=== PATIENT | female | born 1945 | race Two or more races ===

== ENCOUNTER → 2017-01-27 | Outpatient (CLI) | payer OTHER, MEDICAID ==
[~2017-01-27] VITALS: Ht 147.3 cm; Wt 61.7 kg
== END | disposition home or self-care (01) ==
LOC: Rad HDHVI 12:54
PROVIDERS: ATTEND Internal Medicine Cardiovascular Disease
DX: I08.2 Rheumatic disorders of both aortic and tricuspid valves (principal); E78.00 Pure hypercholesterolemia, unspecified
CPT/HCPCS: 93017; 93306

== ENCOUNTER → 2017-02-23 | Outpatient (CLI) | payer OTHER, MEDICAID | END | disposition home or self-care (01) | LOC: Rad HDHVI 14:12 | PROVIDERS: ATTEND Internal Medicine Cardiovascular Disease | DX: R79.82 Elevated C-reactive protein (CRP) (principal); I25.10 Atherosclerotic heart disease of native coronary artery without angina pectoris; I10 Essential (primary) hypertension | CPT/HCPCS: 36415; 86141; 93880 ==

== ENCOUNTER 2020-06-10 17:06 | Inpatient (IN) | payer OTHER, MEDICAID ==
[~2020-06-10] VITALS: Ht 149.9 cm; Wt 63.9 kg
[2020-06-10 19:06] LABS: Basophils # (auto) 0 10 ^3/uL (0-0.2); Basophils % (auto) 0.2 % (0.0-2.0); Eosinophils # (auto) 0 10 ^3/uL (0-0.8); Eosinophils % (auto) 0.1 % (0.0-7.0); Hematocrit 37.7 % (36.0-46.0); Hemoglobin 12.7 g/dL (12.2-16.2); Lymphocytes # (auto) 0.7 10 ^3/uL (0.4-5.4); Lymphocytes % (auto) 6.1 % (10.0-50.0); Mean Corpuscular Hemoglobin 29.2 pg (28.0-32.0); Mean Corpuscular Hgb Conc. 33.7 g/dL (32.0-36.0); Mean Corpuscular Volume 86.5 fL (80.0-100.0); Monocytes # (auto) 0.8 10 ^3/uL (0-1.3); Monocytes % (auto) 6.3 % (0.0-12.0); Neutrophils # (auto) 10.6 10 ^3/uL (1.6-8.6); Neutrophils % (auto) 87.3 % (37.0-80.0); Platelet Count (auto) 332 10^3/uL (140-450); Red Blood Cells 4.36 10^6/uL (4.0-5.20); White Blood Cell 12.2 10^3/uL (4.4-10.8)
[2020-06-10 19:25] LABS: Albumin 3.6 g/dL (3.4-5.0); BUN/Creatinine Ratio 13.5; Calcium 8.7 mg/dL (8.5-10.1); Potassium 3.5 mmol/L (3.5-5.1)
[2020-06-10 19:28] LABS: Bilirubin, Total 0.4 mg/dL (0.2-1.0); Total Protein 8.4 g/dL (6.4-8.2)
[2020-06-10 19:38] LABS: Magnesium 2.3 mg/dL (1.6-2.6)
[2020-06-10 19:46] LABS: Lactate Dehydrogenase 477 U/L (84-246)
[2020-06-10 19:54] LABS: CRP High Sensitivity > 19.0 mg/dL (< 0.3)
[2020-06-10] MEDS ORDERED: MORPHINE SULF INJ 2 MG/ML SYRINGE 1ML IV PRN (22:45)
[2020-06-10] MEDS ORDERED: NITROGLYCERIN 0.4 MG SL TAB SL PRN (22:45)
[2020-06-10] MEDS ORDERED: ONDANSETRON HCL 4 MG/2 ML VIAL IV PRN (22:45)
[2020-06-11 07:57] LABS: Basophils # (auto) 0 10 ^3/uL (0-0.2); Basophils % (auto) 0.2 % (0.0-2.0); Eosinophils # (auto) 0 10 ^3/uL (0-0.8); Eosinophils % (auto) 0.2 % (0.0-7.0); Hematocrit 34.1 % (36.0-46.0); Hemoglobin 11.4 g/dL (12.2-16.2); Lymphocytes # (auto) 1.5 10 ^3/uL (0.4-5.4); Lymphocytes % (auto) 18.7 % (10.0-50.0); Mean Corpuscular Hgb Conc. 33.6 g/dL (32.0-36.0); Mean Corpuscular Volume 86.4 fL (80.0-100.0); Monocytes # (auto) 0.8 10 ^3/uL (0-1.3); Monocytes % (auto) 10.2 % (0.0-12.0); Neutrophils # (auto) 5.8 10 ^3/uL (1.6-8.6); Neutrophils % (auto) 70.7 % (37.0-80.0); Platelet Count (auto) 303 10^3/uL (140-450); Red Blood Cells 3.94 10^6/uL (4.0-5.20); White Blood Cell 8.1 10^3/uL (4.4-10.8)
[2020-06-11 08:16] LABS: Potassium 3.4 mmol/L (3.5-5.1)
[2020-06-11 08:22] LABS: Bilirubin, Total 0.4 mg/dL (0.2-1.0); Calcium 8.9 mg/dL (8.5-10.1); Total Protein 7.1 g/dL (6.4-8.2)
[2020-06-11] MEDS: DexAMETHasone SOD PHOS 10MG/1ML VIAL INJ IV SCH (09:49)
[2020-06-11] MEDS: ASCORBIC ACID 1,000 MG TAB PO SCH (09:49)
[2020-06-11] MEDS: CHOLECALCIFEROL (VITD3) 2,000 UNIT CAP PO SCH (09:49)
[2020-06-11] MEDS: FAMOTIDINE 20 MG TAB PO SCH (09:49)
[2020-06-11] MEDS: ZINC SULFATE 220mg CAP or TAB PO SCH (09:49)
[2020-06-11] MEDS: DOXYCYCLINE 100MG/250ML 250 ML IV SCH ×2 (09:50→22:39)
[2020-06-11] MEDS ORDERED: DexAMETHasone SOD PHOS 10MG/1ML VIAL INJ IV SCH (10:00)
[2020-06-11] MEDS: BUDESONIDE (INHALATION) 180 MCG IH IN SCH ×2 (10:14→22:00)
[2020-06-11] MEDS: ENOXAPARIN SOD 40 MG/0.4 ML SYRINGE SC SCH (10:20)
[2020-06-11] MEDS ORDERED: REMDESIVIR PER PHARMACY 0 ML IV SCH (11:30)
[2020-06-11] MEDS ORDERED: diphenhdrAMINE HCL 50 MG/1 ML VL IV PRN (11:30)
[2020-06-11] MEDS ORDERED: REMDESIVIR 200 MG in NS 210ml LOADING DOSE ADULT IV ONE (15:00)
[2020-06-11 15:50] VITALS: BP 153/68
--- NOTE | 2020-06-11 15:50 | NUR ---
Telemetry admit from ER DANIELLAJULIO CTIM admitted to Telemetry unit after SBAR received. Patient oriented to Kasia Rodrigues, primary RN, unit, room, bed, and unit policies regarding patient care and visiting hours. Patient now on continuous telemetry monitoring, tele box # 14 and telemetry reading on arrival to unit is sinus rhyhtm. Patient placed on bedside oxygen at 6L n/c saturation 91%. Pt weighed by bedscale and encouraged to call if they need something. All questions and concerns addressed, patient verbalized understanding. Fall precs in place per protocol call light within reach no acute distress or sob noted.
[2020-06-11] MEDS ORDERED: guaiFENesin-DM 100/10mg/5ml SYR PO PRN (16:00)
--- NOTE | 2020-06-11 16:46 | NUR ---
Remdesivir started as ordered after consent verified BP 122/76 HR 96 Cont to monitor closely
--- NOTE | 2020-06-11 17:00 | NUR ---
Patient tolerating Remdesivir well BP 121/78 HR 86 Cont to monitor closely
--- NOTE | 2020-06-11 18:00 | NUR ---
Patient tolerated Remdesivir well BP 117/74 HR 82 IV flushed with saline as ordered. No acute distress or sob noted. Call light within reach
[2020-06-11] MEDS ORDERED: OME20T PO (18:38)
[2020-06-11] MEDS ORDERED: ATOR10TA PO (18:38)
--- NOTE | 2020-06-11 19:00 | NUR ---
Patient care endorsed endorsed care to Flory tellez. Patient sitting up in bed no acute distress or sob noted currently 6l n/c. Call light within reach.
--- NOTE | 2020-06-11 19:20 | NUR ---
Opening Shift Note Assumed care of patient. Patient is awake and alert, oriented x 4. No S/S of respiratory distress. Patient denies pain at this time. Bed placed in lowest locked position, bed alarm turned on, and call light within reach. POC discussed; patient to call for assistance PRN. Will continue to monitor for changes Q1hr and PRN.
[2020-06-11 20:00] VITALS: BP 125/77
[2020-06-11 22:00] VITALS: BP 125/77
[2020-06-11] MEDS: ALBUTEROL SULF HFA 90MCG INH 200DOSE IN PRN (22:00)
[2020-06-11] MEDS: ATORVASTATIN 20 MG TAB PO SCH (22:40)
[2020-06-11 22:53] LABS: Urine Amorphous Crystal FEW /hpf (None Seen); Urine Bacteria NONE SEEN /hpf (None Seen); Urine Blood Negative /uL (Negative); Urine Mucus FEW (None Seen); Urine WBC <1 /hpf (0 - 5)
[2020-06-12] VITALS (10 sets, daily range): BP systolic 110–160; BP diastolic 64–84
--- NOTE | 2020-06-12 01:15 | NUR ---
CC infused No s/s symptoms of adverse reaction present. BP 128/80 , HR 83, T 98.1. Will continue to monitor.
[2020-06-12] MEDS: ACETAMINOPHEN 325 MG TAB PO PRN (01:29)
--- NOTE | 2020-06-12 02:59 | NUR ---
CC Infusion of convalescence plasma started at 0015. Patient tolerates well. VS within normal limits. Nos/s of allergic or adverse reaction. Patient instructed to report any changes in physical condition. Will continue to monitor.
[2020-06-12] MEDS: BUDESONIDE (INHALATION) 180 MCG IH IN SCH ×2 (10:00→18:41)
[2020-06-12] MEDS: CHOLECALCIFEROL (VITD3) 2,000 UNIT CAP PO SCH (10:00)
[2020-06-12] MEDS: DOXYCYCLINE 100MG/250ML 250 ML IV SCH ×2 (10:00→21:34)
[2020-06-12] MEDS: ENOXAPARIN SOD 40 MG/0.4 ML SYRINGE SC SCH (10:00)
[2020-06-12] MEDS: FAMOTIDINE 20 MG TAB PO SCH (10:00)
[2020-06-12] MEDS ORDERED: ENOXAPARIN SOD 60 MG/0.6 ML SYRINGE SC ONE (11:00)
[2020-06-12] MEDS: DexAMETHasone SOD PHOS 10MG/1ML VIAL INJ IV SCH (11:08)
[2020-06-12] MEDS: ZINC SULFATE 220mg CAP or TAB PO SCH (11:09)
[2020-06-12] MEDS: ASCORBIC ACID 1,000 MG TAB PO SCH (11:09)
[2020-06-12] MEDS ORDERED: REMDESIVIR PER PHARMACY 0 ML IV SCH (11:30)
[2020-06-12] MEDS ORDERED: FUROSEMIDE 40 MG/4 ML VIAL IV ONE (14:30)
[2020-06-12] MEDS ORDERED: POTASSIUM CHL 20 Meq TABLET PO ONE (14:30)
[2020-06-12] MEDS: REMDESIVIR 100 MG in SODIUM CHL 0.9% 250 ML IV SCH (15:16)
--- NOTE | 2020-06-12 15:16 | NUR ---
Remdesivir started as ordered at this time. BP 126/72 HR 75 continue to monitor closely
--- NOTE | 2020-06-12 17:02 | NUR ---
Patient tolerated Remdesivir well no distress or sob noted BP 120/76 HR 70 Cont to monitor
--- NOTE | 2020-06-12 17:11 | NUR ---
Patient on 8L Oxymizer, ambulated to bathroom and became sob with exertion. Pt assisted back to bed and placed on 8L oxymizer saturation 92%. Cont to monitor
[2020-06-12] MEDS: ALBUTEROL SULF HFA 90MCG INH 200DOSE IN PRN (18:41)
[2020-06-12] MEDS: ATORVASTATIN 20 MG TAB PO SCH (21:36)
--- NOTE | 2020-06-12 23:35 | NUR ---
Respiratory culture: Sputum sample sent to lab for respiratory culture as ordered.
--- NOTE | 2020-06-13 01:45 | NUR ---
Influenza Swab: Influenza Swab A and B collected and sent to lab for testing. Patient tolerated well.
[2020-06-13 05:00] VITALS: BP 123/65
[2020-06-13] MEDS: ACETAMINOPHEN 325 MG TAB PO PRN (05:31)
[2020-06-13] MEDS: BUDESONIDE (INHALATION) 180 MCG IH IN SCH ×3 (06:11→20:01)
--- NOTE | 2020-06-13 07:15 | NUR ---
Opening Shift Note Assumed care of patient, awake and alert. No S/S of distress/SOB or pain. Patient on 6L Oxymizer. Instructed on POC and to call for assist PRN, will continue to monitor for changes Q1hr and PRN.
[2020-06-13 08:26] LABS: Calcium 9.2 mg/dL (8.5-10.1); Potassium 3.7 mmol/L (3.5-5.1)
[2020-06-13 08:27] LABS: BUN/Creatinine Ratio 23.8
[2020-06-13] MEDS: ALBUTEROL SULF HFA 90MCG INH 200DOSE IN PRN ×2 (08:48→20:00)
[2020-06-13 09:00] VITALS: BP 111/59
[2020-06-13] MEDS: DexAMETHasone SOD PHOS 10MG/1ML VIAL INJ IV SCH (09:21)
[2020-06-13] MEDS: ASCORBIC ACID 1,000 MG TAB PO SCH (09:22)
[2020-06-13] MEDS: FUROSEMIDE 40 MG/4 ML VIAL IV SCH (09:22)
[2020-06-13] MEDS: DOXYCYCLINE 100MG/250ML 250 ML IV SCH ×2 (09:22→21:18)
[2020-06-13] MEDS: FAMOTIDINE 20 MG TAB PO SCH (09:22)
[2020-06-13] MEDS: ZINC SULFATE 220mg CAP or TAB PO SCH (09:22)
[2020-06-13] MEDS: POTASSIUM CHL 20 Meq TABLET PO SCH (09:22)
[2020-06-13] MEDS: CHOLECALCIFEROL (VITD3) 2,000 UNIT CAP PO SCH (09:23)
[2020-06-13] MEDS: ENOXAPARIN SOD 40 MG/0.4 ML SYRINGE SC SCH (09:23)
--- NOTE | 2020-06-13 11:08 | NUR ---
Assessment Patient is a 74 year old female, patient was unable to participate with SW on initial assessment, SW called . Per Kavon ([phone]), patient was alert and oriented prior to admission to [facility]. Per Kavon, patient cognitive abilities are intact. Per Kavon, patient can do all ADL's and ambulate independently. Per Kavon, patient lives at home with him, she is retire and receives social security as income. Per Kavon, patient will return home post discharge, and will provide transportation post discharge. Per Kavon, he and their son are her support system. Per Kavon, he is requesting Advance Directive forms. Discharge planning: Patient will return home post discharge, patient will follow up care with PCP post discharge. SW will provide Advance Directive forms prior to post discharge. There are no other discharge needs to address at the moment. Addendum: 06/13/20 at 1115 by SHAWNA MATA SS Amended: Links added.
[2020-06-13 13:00] VITALS: BP 115/63
[2020-06-13] MEDS: REMDESIVIR 100 MG in SODIUM CHL 0.9% 250 ML IV SCH (15:32)
--- NOTE | 2020-06-13 15:32 | NUR ---
Remdesivir started as ordered at this time. BP 96/63 HR 77 rate started at 125ml/hr as pt's BP is decreased. Cont to monitor closely. Patient denies dizziness, light headed. Instructed to notify primary nursing of hypotension symptoms she verbalized understanding.
--- NOTE | 2020-06-13 15:45 | NUR ---
Patient tolerating Remdesivir well BP 102/62 HR 67. Remdesivir rate 125ml/hr cont to monitor
--- NOTE | 2020-06-13 16:20 | NUR ---
BP 99/67 HR 63 Remdesivir at 125ml/hr no acute distress or sob noted. Cont to monitor closely
[2020-06-13 17:00] VITALS: BP 101/66
--- NOTE | 2020-06-13 17:50 | NUR ---
Patient tolerated Remdesivir infusion well no signs of acute distress or sob BP 106/78 HR 75 o2 93% on 6L oxymizer. Patient encouraged to prone and IS at bedside she verbalized understanding and returned demonstration. Cont care
--- NOTE | 2020-06-13 19:00 | NUR ---
Patient care endorsed endorsed care to Shiela tellez. Patient sitting up in bed no acute distress or sob noted oxygen at 93% on 6L oxymizer. Call light within reach
--- NOTE | 2020-06-13 19:30 | NUR ---
Opening Shift Note Assumed care of patient, awake and alert. No S/S of distress/SOB or pain noted. Instructed on POC and to call for assist PRN. Bed is in lowest locked position with bed rails up x2 and call light is within reach of the patient.
[2020-06-13 20:53] VITALS: BP 117/72
[2020-06-13] MEDS: ATORVASTATIN 20 MG TAB PO SCH (21:18)
[2020-06-14] MEDS: ACETAMINOPHEN 325 MG TAB PO PRN (05:45)
[2020-06-14 06:01] VITALS: BP 106/69
[2020-06-14 07:06] LABS: Basophils # (auto) 0 10 ^3/uL (0-0.2); Basophils % (auto) 0.1 % (0.0-2.0); Eosinophils # (auto) 0 10 ^3/uL (0-0.8); Eosinophils % (auto) 0.1 % (0.0-7.0); Hemoglobin 12.6 g/dL (12.2-16.2); Monocytes # (auto) 1.7 10 ^3/uL (0-1.3); Neutrophils # (auto) 9.5 10 ^3/uL (1.6-8.6); Nucleated Red Blood Cells % 0.1 %
[2020-06-14 07:14] LABS: Hematocrit 36.7 % (36.0-46.0); Lymphocytes # (auto) 3.4 10 ^3/uL (0.4-5.4); Lymphocytes % (auto) 23.2 % (10.0-50.0); Mean Corpuscular Hemoglobin 29.6 pg (28.0-32.0); Mean Corpuscular Hgb Conc. 34.2 g/dL (32.0-36.0); Mean Corpuscular Volume 86.4 fL (80.0-100.0); Monocytes % (auto) 11.4 % (0.0-12.0); Neutrophils % (auto) 65.2 % (37.0-80.0); Platelet Count (auto) 484 10^3/uL (140-450); Red Blood Cells 4.25 10^6/uL (4.0-5.20); Red Cell Distribution Width 12.8 % (11.8-14.3); White Blood Cell 14.5 10^3/uL (4.4-10.8)
[2020-06-14 07:33] LABS: Calcium 8.9 mg/dL (8.5-10.1); Potassium 3.5 mmol/L (3.5-5.1)
[2020-06-14 07:35] LABS: Bilirubin, Total 0.4 mg/dL (0.2-1.0); Total Protein 7.5 g/dL (6.4-8.2)
[2020-06-14] MEDS: BUDESONIDE (INHALATION) 180 MCG IH IN SCH (10:00)
[2020-06-14 10:06] VITALS: BP 99/53
[2020-06-14] MEDS: DexAMETHasone SOD PHOS 10MG/1ML VIAL INJ IV SCH (10:07)
[2020-06-14] MEDS: DOXYCYCLINE 100MG/250ML 250 ML IV SCH (10:07)
[2020-06-14] MEDS: FUROSEMIDE 40 MG/4 ML VIAL IV SCH (10:07)
[2020-06-14] MEDS: ZINC SULFATE 220mg CAP or TAB PO SCH (10:08)
[2020-06-14] MEDS: CHOLECALCIFEROL (VITD3) 2,000 UNIT CAP PO SCH (10:08)
[2020-06-14] MEDS: POTASSIUM CHL 20 Meq TABLET PO SCH (10:08)
[2020-06-14] MEDS: ASCORBIC ACID 1,000 MG TAB PO SCH (10:08)
[2020-06-14] MEDS: FAMOTIDINE 20 MG TAB PO SCH (10:08)
[2020-06-14] MEDS: ENOXAPARIN SOD 40 MG/0.4 ML SYRINGE SC SCH (10:08)
--- NOTE | 2020-06-14 12:51 | NUR ---
Nutrition Assessment Notes please see attached link for complete assessment [employer] needs BW 62 [id number] kcals (23-25 kcal/kgBW), Est Protein needs: 62-68 gms/day (1.0-1.1 gm/kgBW) Will continue to monitor and reassess prn. Addendum: 06/14/20 at [address] Amended: Links added.
[2020-06-14] MEDS ORDERED: ALBUAER3 IN (14:27)
[2020-06-14] MEDS ORDERED: ZINC220T6 PO (14:27)
[2020-06-14] MEDS ORDERED: CHOL1CAP47 PO (14:27)
[2020-06-14] MEDS ORDERED: ASCO500T11 PO (14:27)
[2020-06-14] MEDS ORDERED: ASPI81CH43 PO (14:27)
[2020-06-14] MEDS ORDERED: DEX4T PO (14:27)
--- NOTE | 2020-06-14 16:08 | NUR ---
Reassessment Per [facility] from [facility] ([phone]), possible delivery for 02 4L tonight. NIKO informed Lisa that patient has possible discharge orders for 06/15/2020. Per Lisa, oxygen concentrator will be delivered to home address. NIKO has notify Tiffani GONSALEZ of oxygen delivery.
[2020-06-14] MEDS: REMDESIVIR 100 MG in SODIUM CHL 0.9% 250 ML IV SCH (16:22)
--- NOTE | 2020-06-14 18:59 | NUR ---
CARE ENDORSED TO NOC RN.
--- NOTE | 2020-06-14 19:24 | NUR ---
Opening Shift Note Assumed care of patient, awake and alert x 4. No S/S of distress/SOB or pain. Patient on 4l/min Oxymizer. Bed is in lowest position and locked. Call light within reach. Board updated. Instructed on POC and to call for assist PRN, will continue to monitor for changes Q1hr and PRN.
[2020-06-14] MEDS: ATORVASTATIN 20 MG TAB PO SCH (21:36)
[2020-06-14 22:16] VITALS: BP 104/66
--- NOTE | 2020-06-14 22:23 | NUR ---
Home O2 delivered to bedside.
[2020-06-15 05:17] VITALS: BP 109/65
[2020-06-15] MEDS: BUDESONIDE (INHALATION) 180 MCG IH IN SCH (07:29)
[2020-06-15] MEDS: ALBUTEROL SULF HFA 90MCG INH 200DOSE IN PRN (07:30)
--- NOTE | 2020-06-15 07:35 | NUR ---
Opening Shift Note Assumed care of patient, AOx4. No S/S of distress/SOB. Patient complains of headache, will administer PRN Tylenol. Safety measures in place, including bed locked in lowest position and call light within reach. Instructed on POC and to call for assist PRN, will continue to monitor for changes Q1hr and PRN.
[2020-06-15 07:52] LABS: Basophils # (auto) 0 10 ^3/uL (0-0.2); Eosinophils # (auto) 0 10 ^3/uL (0-0.8); Eosinophils % (auto) 0.3 % (0.0-7.0)
[2020-06-15 07:54] LABS: Hematocrit 38.6 % (36.0-46.0); Hemoglobin 13.1 g/dL (12.2-16.2); Lymphocytes # (auto) 3.7 10 ^3/uL (0.4-5.4); Lymphocytes % (auto) 26.2 % (10.0-50.0); Mean Corpuscular Hemoglobin 29.5 pg (28.0-32.0); Mean Corpuscular Hgb Conc. 33.8 g/dL (32.0-36.0); Mean Corpuscular Volume 87.1 fL (80.0-100.0); Monocytes # (auto) 1.5 10 ^3/uL (0-1.3); Monocytes % (auto) 10.4 % (0.0-12.0); Neutrophils # (auto) 8.9 10 ^3/uL (1.6-8.6); Neutrophils % (auto) 63.1 % (37.0-80.0); Nucleated Red Blood Cells % 0.1 %; Platelet Count (auto) 508 10^3/uL (140-450); Red Blood Cells 4.43 10^6/uL (4.0-5.20); Red Cell Distribution Width 13.1 % (11.8-14.3)
[2020-06-15 08:15] LABS: Albumin 2.9 g/dL (3.4-5.0); Potassium 3.8 mmol/L (3.5-5.1)
[2020-06-15 08:18] LABS: BUN/Creatinine Ratio 28.8; Bilirubin, Total 0.4 mg/dL (0.2-1.0); Total Protein 7.2 g/dL (6.4-8.2)
[2020-06-15 09:00] VITALS: BP 108/68
--- NOTE | 2020-06-15 09:15 | NUR ---
IV Insertion IV access obtained, via clean sterile technique by inserting 22 gauge catheter to left forearm after one attempt. IV secured properly. No trauma to site. Patient tolerated well, continue to monitor.
[2020-06-15] MEDS: DexAMETHasone SOD PHOS 10MG/1ML VIAL INJ IV SCH (09:30)
[2020-06-15] MEDS: ZINC SULFATE 220mg CAP or TAB PO SCH (09:31)
[2020-06-15] MEDS: POTASSIUM CHL 20 Meq TABLET PO SCH (09:31)
[2020-06-15] MEDS: FUROSEMIDE 40 MG/4 ML VIAL IV SCH (09:31)
[2020-06-15] MEDS: FAMOTIDINE 20 MG TAB PO SCH (09:32)
[2020-06-15] MEDS: CHOLECALCIFEROL (VITD3) 2,000 UNIT CAP PO SCH (09:32)
[2020-06-15] MEDS: ASCORBIC ACID 1,000 MG TAB PO SCH (09:32)
[2020-06-15] MEDS: ENOXAPARIN SOD 40 MG/0.4 ML SYRINGE SC SCH (09:32)
[2020-06-15] MEDS: ACETAMINOPHEN 325 MG TAB PO PRN (09:33)
[2020-06-15] MEDS ORDERED: levoFLOXacin 500 MG TAB PO SCH (10:00)
--- NOTE | 2020-06-15 11:15 | NUR ---
Doctor at bedside Dr. Bauman at bedside, updated on POC to patient and this RN. No new orders given at the moment, will continue to monitor.
[2020-06-15 12:00] VITALS: BP 107/67
[2020-06-15 13:00] VITALS: BP 99/64
[2020-06-15 13:56] VITALS: BP 108/68
--- NOTE | 2020-06-15 16:20 | NUR ---
Remdesivir started as ordered at this time. BP 107/67 HR 79 rate started at 125ml/hr as pt's BP is decreased. Cont to monitor closely. Patient denies dizziness, light headed. Instructed to notify primary nursing of hypotension symptoms she verbalized understanding.
[2020-06-15] MEDS: REMDESIVIR 100 MG in SODIUM CHL 0.9% 250 ML IV SCH (16:52)
--- NOTE | 2020-06-15 18:33 | NUR ---
Patient tolerated Remdesivir infusion well no signs of acute distress/SOB. BP 103/65 HR 76. Will continue to monitor.
--- NOTE | 2020-06-15 19:08 | NUR ---
Closing Note Endorsed care to Denilson RN. Discharge instructions provided, awaiting brain picker. This RN called patients , Kavon, updated on POC. States he will be here to pick patient up. No signs of distress noted at this time.
--- NOTE | 2020-06-15 19:34 | NUR ---
Discharge instructions given as ordered. Encourage to follow up with PMD as instructed. All questions and concerns addressed. Patient verbalized understanding. IV removed with catheter intact, pressure dressing applied. Telemetry unit returned to ICU. Patient taken to vehicle via wheelchair with all personal belongings, accompanied by staff and family member. No distress noted at time of departure.
== END 2020-06-15 19:34 | disposition home or self-care (01) | DRG 871 ==
LOC: ER 17:07 → TELE 17:08 → TELE-EAST 06-11 16:15 → EAST 06-14 14:20
PROVIDERS: ADMIT Nurse Practitioner; ATTEND Internal Medicine
PROC: XW033E5 Introduction of Remdesivir Anti-infective into Peripheral Vein, Percutaneous Approach, New Technology Group 5 (ICD-10-PCS; 2020-06-11)
PROC: XW13325 Transfusion of Convalescent Plasma (Nonautologous) into Peripheral Vein, Percutaneous Approach, New Technology Group 5 (ICD-10-PCS; principal; 2020-06-12)
DX: A41.89 Other specified sepsis (principal); U07.1 COVID-19; J12.89 Other viral pneumonia; N17.0 Acute kidney failure with tubular necrosis; J96.01 Acute respiratory failure with hypoxia; E87.1 Hypo-osmolality and hyponatremia; R65.20 Severe sepsis without septic shock; J45.909 Unspecified asthma, uncomplicated; E87.6 Hypokalemia; E78.5 Hyperlipidemia, unspecified; K21.9 Gastro-esophageal reflux disease without esophagitis; Z90.49 Acquired absence of other specified parts of digestive tract; Z88.5 Allergy status to narcotic agent
CPT/HCPCS: 36415; 36600; 71045; 80048; 80053; 81001; 82728; 82805; 83605; 83615; 83735; 84443; 84484; 85025; 85379; 86141; 86850; 86900; 86901; 87070; 87077; 87186; 87205; 87426; 87804; 94640; 96372; 96374; G0378; J1100; J3490

== ENCOUNTER → 2022-01-15 | Outpatient (CLI) | payer OTHER, MEDICAID ==
[~2022-01-15] MED LIST: ALBUAER3 IN; ASCO500T11 PO; ASPI81CH43 PO; ATOR10TA PO; CHOL1CAP47 PO; DEX4T PO; OME20T PO; ZINC220T6 PO
== END | disposition home or self-care (01) ==
LOC: Rad HDHVI 09:00
PROVIDERS: ATTEND Internal Medicine
DX: I08.2 Rheumatic disorders of both aortic and tricuspid valves (principal); I10 Essential (primary) hypertension; E78.5 Hyperlipidemia, unspecified
CPT/HCPCS: 93306

== ENCOUNTER → 2022-02-12 | Outpatient (CLI) | payer OTHER, MEDICAID ==
[~2022-02-12] VITALS: Ht 149.9 cm; Wt 60.8 kg
[~2022-02-12] MED LIST changes: +ADENOSINE 51 MG in GIVE UN-DILUTED 0 ML IV ONE; +ADENOSINE 90 MG/30 ML INJ IV ONE
== END | disposition home or self-care (01) ==
LOC: Rad HDHVI 13:33
PROVIDERS: ATTEND Internal Medicine
DX: E78.5 Hyperlipidemia, unspecified (principal); E11.9 Type 2 diabetes mellitus without complications; R07.9 Chest pain, unspecified; I10 Essential (primary) hypertension; I82.409 Acute embolism and thrombosis of unspecified deep veins of unspecified lower extremity
CPT/HCPCS: 78452; 93005; 96374; 96375; A9500; J0153

== ENCOUNTER 2022-08-11 16:56 | Emergency (ER) | payer OTHER, MEDICAID ==
[~2022-08-11] VITALS: Ht 160 cm; Wt 63.6 kg
[~2022-08-11 16:56] MED LIST changes: -ADENOSINE 51 MG in GIVE UN-DILUTED 0 ML IV ONE; -ADENOSINE 90 MG/30 ML INJ IV ONE
[2022-08-12 00:50] VITALS: BP 139/76
[2022-08-12] MEDS ORDERED: PERCOT PO (02:02)
[2022-08-12] MEDS ORDERED: ONDA-144 PO (02:02)
== END 2022-08-12 02:21 | disposition home or self-care (01) ==
LOC: EDBD 16:56 → ER 16:56
DX: G44.309 Post-traumatic headache, unspecified, not intractable (principal); J45.909 Unspecified asthma, uncomplicated; K21.9 Gastro-esophageal reflux disease without esophagitis; E78.5 Hyperlipidemia, unspecified; Z88.5 Allergy status to narcotic agent; Z79.899 Other long term (current) drug therapy; Z90.49 Acquired absence of other specified parts of digestive tract; V49.49XA Driver injured in collision with other motor vehicles in traffic accident, initial encounter; Y93.89 Activity, other specified; Y92.89 Other specified places as the place of occurrence of the external cause; Y99.8 Other external cause status
CPT/HCPCS: 70450; 72125

== ENCOUNTER → 2022-09-07 | Outpatient (CLI) | payer OTHER ==
[~2022-09-07] MED LIST changes: +ONDA-144 PO; +PERCOT PO
== END | disposition home or self-care (01) ==
LOC: Rad HDHVI 08:08
PROVIDERS: ATTEND Internal Medicine
DX: I08.3 Combined rheumatic disorders of mitral, aortic and tricuspid valves (principal); I10 Essential (primary) hypertension; E78.5 Hyperlipidemia, unspecified
CPT/HCPCS: 93306

== ENCOUNTER 2023-08-26 19:10 | Emergency (ER) | payer OTHER, MEDICAID ==
[~2023-08-26] VITALS: Ht 149.9 cm; Wt 59.1 kg
[2023-08-26 21:38] LABS: Urine Bacteria FEW /hpf (None Seen); Urine Blood Negative /uL (Negative); Urine Clarity HAZY (Clear); Urine Color Colorless (Yellow); Urine Protein, UAD Negative (Negative); Urine Specific Gravity 1.003 (1.001-1.035); Urine Urobilinogen Normal (Negative); Urine WBC 4 /hpf (0 - 5)
[2023-08-26 21:42] LABS: Basophils # (auto) 0 10 ^3/uL (0-0.2); Basophils % (auto) 0.4 % (0.0-2.0); Eosinophils # (auto) 0.4 10 ^3/uL (0-0.8); Eosinophils % (auto) 3.3 % (0.0-7.0); Hematocrit 39.6 % (36.0-46.0); Hemoglobin 13.2 g/dL (12.2-16.2); Lymphocytes # (auto) 4.4 10 ^3/uL (0.4-5.4); Lymphocytes % (auto) 39.9 % (10.0-50.0); Mean Corpuscular Hemoglobin 29.8 pg (28.0-32.0); Mean Corpuscular Hgb Conc. 33.2 g/dL (32.0-36.0); Mean Corpuscular Volume 89.8 fL (80.0-100.0); Monocytes # (auto) 0.6 10 ^3/uL (0-1.3); Monocytes % (auto) 5.1 % (0.0-12.0); Neutrophils # (auto) 5.6 10 ^3/uL (1.6-8.6); Neutrophils % (auto) 51.3 % (37.0-80.0); Red Blood Cells 4.41 10^6/uL (4.0-5.20); Red Cell Distribution Width 13.1 % (11.8-14.3)
[2023-08-26 21:52] LABS: Chloride 111 mmol/L (98-107); Sodium 143 mmol/L (136-145)
[2023-08-26 21:53] LABS: Anion Gap 7 (5-15); Calcium 9.6 mg/dL (8.7-10.4); Carbon Dioxide 25 mmol/L (20-30)
[2023-08-26 21:58] LABS: BUN/Creatinine Ratio 12.2 (10.0-20.0); Blood Urea Nitrogen 9 mg/dL (9-23); Glucose 103 mg/dL (74-106)
[2023-08-27 02:20] VITALS: PULSE 79; RESP 20; O2SAT 98
[2023-08-27 02:22] VITALS: BP 164/80; PULSE 72; RESP 20; TEMP 98.4; O2SAT 75
== END 2023-08-27 02:29 | disposition home or self-care (01) ==
LOC: ER 19:10
DX: R10.31 Right lower quadrant pain (principal); J45.909 Unspecified asthma, uncomplicated; K21.9 Gastro-esophageal reflux disease without esophagitis; E78.5 Hyperlipidemia, unspecified; Z90.49 Acquired absence of other specified parts of digestive tract; Z79.82 Long term (current) use of aspirin; Z79.899 Other long term (current) drug therapy; Z88.5 Allergy status to narcotic agent; Z88.8 Allergy status to other drugs, medicaments and biological substances
CPT/HCPCS: 36415; 74176; 80048; 81001; 85025

== ENCOUNTER → 2023-11-17 | Outpatient (CLI) | payer OTHER ==
[~2023-11-17] VITALS: Ht 149.9 cm; Wt 58.1 kg
[~2023-11-17] MED LIST changes: +ADENOSINE 49 MG in GIVE UN-DILUTED 0 ML IV ONE; +ADENOSINE 90 MG/30 ML INJ IV ONE
== END | disposition home or self-care (01) ==
LOC: Rad HDHVI 09:31
PROVIDERS: ATTEND Internal Medicine Cardiovascular Disease
DX: I48.0 Paroxysmal atrial fibrillation (principal); I11.0 Hypertensive heart disease with heart failure; I50.33 Acute on chronic diastolic (congestive) heart failure; E78.5 Hyperlipidemia, unspecified; R07.89 Other chest pain
CPT/HCPCS: 78452; 93005; 96374; 96375; A9500; J0153

== ENCOUNTER → 2023-12-28 | Outpatient (CLI) | payer OTHER ==
[~2023-12-28] MED LIST changes: -ADENOSINE 49 MG in GIVE UN-DILUTED 0 ML IV ONE; -ADENOSINE 90 MG/30 ML INJ IV ONE
== END | disposition home or self-care (01) ==
LOC: Rad HDHVI 15:00
PROVIDERS: ATTEND Internal Medicine Cardiovascular Disease
DX: I08.3 Combined rheumatic disorders of mitral, aortic and tricuspid valves (principal); I11.9 Hypertensive heart disease without heart failure
CPT/HCPCS: 93306

== ENCOUNTER 2025-01-15 12:25 | Inpatient (IN) | payer OTHER, MEDICAID ==
[~2025-01-15] VITALS: Ht 149.9 cm; Wt 65.2 kg
--- NOTE | 2025-01-15 13:24 | ED.PDOC ---
History of Present Illness HPI Comments 79-year-old female presents to the ER with a prior medical history of high lipids, diabetes, DVT in the right leg, IVC placed 3 years ago: Surgical history of a peripheral stent right leg, varicose vein bilateral surgery, cholecystectomy, colon surgery and the chief complaint of shortness of breath. From the patient reports that she had a IVC filter on Wednesday01/12/2025 at [facility], and was informed if she has any shortness of breath to go to the ER. Patient had dizziness on Wednesday. Patient has left upper back pain during inspiration Denies chills, fever, N/V/D, CP. No other associated symptoms, modifiers, recent injuries or sick contacts present at this time. Chief Complaint: Shortness of Breath Time Seen by MD: 12:40 Primary Care Provider: SHAHRAM Reviewed Notes: Nurses Notes, Medications, Allergies Allergies: Coded Allergies: Codeine (Verified Allergy, Unknown, 01/27/17) Ibuprofen (Verified Allergy, Unknown, 08/26/23) Home Meds Active Scripts Ondansetron (Zofran) 4 Mg Tab, 4 MG PO BID for 7 Days, #14 MG Prov:FRANCISCO BAIG MD 08/12/22 Oxycodone W/ Acetaminophen (Percocet 5/325MG) 1 Tab Tb, 1 TAB PO BID for 7 Days, #14 TAB Prov:FRANCISCO BAIG MD 08/12/22 Aspirin (Asa) 81 Mg Ch, 81 MG PO DAILY for 60 Days, #60 TAB Prov:PRIYANKA PANTOJA MD 06/14/20 Dexamethasone (Decadron) 4 Mg Tb, 6 MG PO DAILY for 5 Days, #8 TAB Decadron 6 mg (1.5 tab of 4 mg) PO daily for 5 days (Please dispense 8 tab) Prov:PRIYANKA PANTOJA MD 06/14/20 Cholecalciferol (Vitamin D3 Super Strength) 2,000 Unit Cap, 4000 UNIT PO DAILY for 30 Days, #60 CAP Prov:PRIYANKA PANTOJA MD 06/14/20 Zinc Sulfate (Zinc Sulfate) 220 Mg Tab, 220 MG PO DAILY for 30 Days, #30 TAB Prov:PRIYANKA PANTOJA MD 06/14/20 Ascorbic Acid (VITAMIN C TABLET) 500 Mg Tb, 1 TAB PO BID, #60 TAB Prov:PRIYANKA PATNOJA MD 06/14/20 Albuterol Sulfate (VENTOLIN MDI) 90 Mcg Ih, 180 MCG IN TIDPRN PRN, #1 INH Prov:PRIYANKA PANTOJA MD 06/14/20 Reported Medications Omeprazole (Omeprazole) 20 Mg Cap, 20 MG PO DAILY, CAP 06/11/20 Atorvastatin Calcium (Lipitor) 10 Mg Tab, 1 TAB PO QPM, #90 TAB 1 Refill 06/11/20 Information Source: Patient Mode of Arrival: Ambulatory Severity: Moderate Timing: Days Duration: Since onset, Days Prehospital treatment: None Past Medical History PAST MEDICAL HISTORY: DM, High Lipids Past Medical History (Other): DVT on the right lower extremity, IVC placed 3 years ago Surgical History: Denies all surgeries Surgical History (Other): Peripheral stent on right lower extremity MANAGER CONTRACTING History: No Pertinent MANAGER CONTRACTING History Family History Family History: Reviewed,noncontributory to illness, Unknown Social History Smoker: Non-Smoker Alcohol: Denies ETOH Use Drugs: Denies Drug Use Lives In: Home Constitutional: denies: chills, diaphoresis, fatigue, fever, malaise, sweats, weakness, others EENTM: denies: blurred vision, double vision, ear bleeding, ear discharge, ear drainage, ear pain, ear ringing, eye pain, eye redness, hearing loss, mouth pain, mouth swelling, nasal discharge, nose bleeding, nose congestion, nose pain, photophobia, tearing, throat pain, throat swelling, voice changes, others Respiratory: reports: shortness of breath; denies: cough, hemoptysis, orthopnea, SOB at rest, SOB with excertion, stridor, wheezing, others Cardiovascular: denies: chest pain, dizzy spells, diaphoresis, Dyspnea on exertion, edema, irregular heart beat, left arm pain, lightheadedness, palpitations, PND, syncope, others Gastrointestinal: denies: abdomen distended, abdominal pain, blood streaked bowels, constipated, diarrhea, dysphagia, difficulty swallowing, hematemesis, melena, nausea, poor appetite, poor fluid intake, rectal bleeding, rectal pain, vomiting, others Genitourinary: denies: abnormal vagina bleeding, burning, dyspareunia, dysuria, flank pain, frequency, hematuria, incontinence, pain, , vagina discharge, urgency, others Neurological: denies: dizziness, fainting, headache, left sided numbness, left sided weakness, numbness, paresthesia, pre-existing deficit, right sided numbness, right sided weakness, seizure, speech problems, tingling, tremors, weakness, others Musculoskeletal: reports: back pain; denies: gout, joint pain, joint swelling, muscle pain, muscle stiffness, neck pain, others Integumetry: denies: bruises, change in color, change in hair/nails, dryness, laceration, lesions, lumps, rash, wounds, others Allergic/Immunocompromised: denies: Difficulty Healing, Frequent Infections, Hives, Itching, others Hematologic/Lymphatic: denies: anemia, blood clots, easy bleeding, easy bruising, swollen glands, others Endocrine: denies: excessive hunger, excessive sweating, excessive thirst, excessive urination, flushing, intolerance to cold, intolerance to heat, unexplained weight gain, unexplained weight loss, others Psychiatric: denies: anxiety, bipolar disorder, depression, hopeless, panic disorder, schizophrenia, sleepless, suicidal, others All Other Systems: Reviewed and Negative Physical Exam General Appearance: No Apparent Distress, Normal HEENT: Normal ENT Inspection, Pharynx Normal, TMs Normal Neck: Full Range of Motion, Non-Tender, Normal, Normal Inspection Respiratory: Chest Non-Tender, Lungs Clear, No Accessory Muscle Use, No Respiratory Distress, Normal Breath Sounds Cardiovascular: No Edema, No JVD, No Murmur, No Gallop, Normal Peripheral Pulses, Regular Rate/Rhythm Breast Exam: Deferred Gastrointestinal: No Organomegaly, Non Tender, No Pulsatile Mass, Normal Bowel Sounds, Soft Genitalia: Deferred Pelvic: Deferred Rectal: Deferred Extremities: No calf tenderness, Normal capillary refill, Normal inspection, Normal range of motion, Non-tender, No pedal edema Musculoskeletal : Apperance: Normal Neurologic: Alert, mobile equipment mechanic II-XII nml as Tested, No Motor Deficits, Normal Affect, Normal Mood, No Sensory Deficits Cerebellar Function: Normal Reflexes: Normal Skin: Dry, Normal Color, Warm Lymphatic: No Adenopathy Was a procedure done? Was a procedure done?: No EKG EKG : Pulse Rate (adult): 94 [place]: Normal Cardiac Rhythm: NSR Block: None Hypertrophy: None ST: Normal Differential Dx Considerations may include: PE, anxiety, chf, ptx, pneumonia, ACS, anemia X-Ray, Labs, Meds, VS Vital Signs Date Time Temp Pulse Resp B/P (MAP) Pulse Ox O2 Delivery O2 Flow Rate FiO2 01/15/25 13:24 94 01/15/25 12:44 97.6 72 16 141/72 (95) 98 97.6 01/15/25 12:38 94 Lab Test 01/15/25 14:48 01/15/25 13:24 Range/Units Troponin I High Sensitivity 9 9 </=34 ng/L White Blood Count 13.4 H 4.4-10.8 10^3/uL Red Blood Count 3.65 L 4.0-5.20 10^6/uL Hemoglobin 10.7 L 12.2-16.2 g/dL Hematocrit 31.8 L 36.0-46.0 % Mean Corpuscular Volume 87.1 80.0-100.0 fL Mean Corpuscular Hemoglobin 29.2 28.0-32.0 pg Mean Corpuscular Hemoglobin Concent 33.5 32.0-36.0 g/dL Red Cell Distribution Width 14.8 H 11.8-14.3 % Platelet Count 159 140-450 10^3/uL Mean Platelet Volume 9.0 6.9-10.8 fL Neutrophils (%) (Auto) 72.7 37.0-80.0 % Lymphocytes (%) (Auto) 17.3 10.0-50.0 % Monocytes (%) (Auto) 8.1 0.0-12.0 % Eosinophils (%) (Auto) 1.6 0.0-7.0 % Basophils (%) (Auto) 0.3 0.0-2.0 % Neutrophils # (Auto) 9.7 H 1.6-8.6 10 ^3/uL Lymphocytes # (Auto) 2.3 0.4-5.4 10 ^3/uL Monocytes # (Auto) 1.1 0-1.3 10 ^3/uL Eosinophils # (Auto) 0.2 0-0.8 10 ^3/uL Basophils # (Auto) 0 0-0.2 10 ^3/uL Nucleated Red Blood Cells 0.0 % Sodium Level 142 136-145 mmol/L Potassium Level 3.4 L 3.5-5.1 mmol/L Chloride Level 106 98-107 mmol/L Carbon Dioxide Level 29 20-31 mmol/L Anion Gap 7 5-15 Blood Urea Nitrogen 10 9-23 mg/dL Creatinine 0.92 0.550-1.02 mg/dL Glomerular Filtration Rate Calc 64 >90 mL/min BUN/Creatinine Ratio 10.9 10.0-20.0 Serum Glucose 112 H 74-106 mg/dL Calcium Level 10.2 8.7-10.4 mg/dL Time of 1ST Reevaluation: 13:10 Reevaluation 1ST: Unchanged Patient Education/Counseling: Diagnosis, Treatment, Prognosis, Need For Follow Up Family Education/Counseling: No Family Present Comments given pt's history of PE, with her dyspnea, and the CT finding, she may have a small PE. i will start her on lovenox. and she will be admitted for further evaluation SEPSIS Sepsis Screen Date sepsis recognized/suspect: Jan 15, 2025 Time Sepsis recognized/suspect: 1224 Recent Procedure: No On Antibiotic Therapy: No Respiratory Rate >20: No Heart Rate >90: No Temp<36 C (96.8 F) or >38.3 C: No SBP <90 or MAP <65 mmHG: No New Acute Mental Status Change: No Is the patient on CPAP, BIPAP,: No Physician Orders Continuous Ekg Monitoring 08,12,16,20,00,04 (01/15/25 12:37) Electrocardigram (01/15/25 12:37) Ct Angio Chest Contrast (01/15/25 12:37) Troponin-I Hs (01/15/25 15:37) Electrocardigram (01/15/25 13:37) Electrocardigram (01/15/25 15:37) Vital Signs Date Time Temp Pulse Resp B/P (MAP) Pulse Ox O2 Delivery O2 Flow Rate FiO2 01/15/25 13:24 94 01/15/25 12:44 97.6 72 16 141/72 (95) 98 97.6 01/15/25 12:38 94 Laboratory Tests Test 01/15/25 13:24 White Blood Count 13.4 10^3/uL (4.4-10.8) H Departure 1 Departure Time of Disposition: 16:18 Impression: Primary Impression: Dyspnea Qualified Codes: R06.02 - Shortness of breath Additional Impression: Pulmonary emboli Qualified Codes: I26.99 - Other pulmonary embolism without acute cor pulmonale Disposition: ADMITTED INPATIENT Admit to: Tele Condition: Serious Discharged With: Self Critical Care Note Critical Care Time?: Yes (55 min-critical care time only) Critical care comment: Due to concerns for patients condition deteriorating, the care required my highest level of attention and readiness to intervene. I assessed the patient, reviewed the medical records, ordered the appropriate tests and treatments, then reassessed for results and responsiveness. I communicated with medical personnel and consultants and formulated a plan of care. Total critical care time excludes any procedures Stability Stability form required: No I personally scribed for DAISY RUIZ MD ([email or web address]) on 01/15/25 at 13:24. Electronically submitted by Domenico Stokes ([email or web address]). DAISY RUIZ MD Jan 15, 2025 13:24
[2025-01-15 13:45] LABS: Hematocrit 31.8 % (36.0-46.0); Hemoglobin 10.7 g/dL (12.2-16.2); Mean Corpuscular Hemoglobin 29.2 pg (28.0-32.0); Mean Corpuscular Volume 87.1 fL (80.0-100.0); Nucleated Red Blood Cells % 0.0 %
[2025-01-15 13:48] LABS: Anion Gap 7 (5-15); Carbon Dioxide 29 mmol/L (20-31); Chloride 106 mmol/L (98-107); Sodium 142 mmol/L (136-145)
[2025-01-15 13:49] LABS: Calcium 10.2 mg/dL (8.7-10.4)
[2025-01-15 13:52] LABS: Potassium 3.4 mmol/L (3.5-5.1)
[2025-01-15 13:54] LABS: BUN/Creatinine Ratio 10.9 (10.0-20.0); Blood Urea Nitrogen 10 mg/dL (9-23)
[2025-01-15 13:57] LABS: Glucose 112 mg/dL (74-106)
[2025-01-15] MEDS: IOHEXOL 350 MG/ML 100ML IJ ONE (14:32)
--- NOTE | 2025-01-15 15:13 | DVH ---
CTA Chest with intravenous contrast INDICATION: r/o pe COMPARISON: None TECHNIQUE: Multidetector spiral CTA of the chest was performed of the chest with intravenous contrast . PULMONARY ANGIOGRAPHY PROTOCOL was utilized using a bolus-tracking technique centered on the main p ulmonary artery. Axial, coronal and sagittal multiplanar and MIP reformats were performed. CONTRAST: Type of contrast: Omni 350 Contrast injected: 100 ml Radiation dose : Chest: CTDI volume is 8.88 mGy. Dose-length product is 498.29 mGy*cm The dose indicators for CT are the volume computed Tomography (CT) dose Index (CTDIvol) and the dose Length product (DLP), and are measured in units of mGy and mGy-cm, respectively. These indicators are not patient dose, but values generated from the CT scanner acquisition factors. The report includes radiation exposure data for exposures received during this examination. Findings: Limited by motion. Pulmonary artery: Curvilinear filling defects in right lower lobe segmental branches. Small clot burden. No evidence o f right heart strain. Lower neck: Normal thyroid. Lungs: Bibasilar consolidation. Patchy ground-glass opacities in both lungs. Subpleural nodule left u pper lung measuring up to 9 mm. Heart/Vascular Structures: Normal heart size. No pericardial effusion. IVC stent noted. Lymph Nodes: Mediastinal and hilar lymphadenopathy. Pleura: Small bilateral pleural effusions. Musculoskeletal: No acute osseous abnormality. Soft tissues: Normal. Upper abdomen: Cyst in the dome of the liver. Possible right adrenal lesion measuring up to 42 mm. Po ssible splenic artery aneurysm measuring up to 8 mm. IMPRESSION: 1. Curvilinear filling defects right lower lobe segmental branches could be chronic. Small acute thro mbus could have a similar appearance. Small clot burden. No evidence of right heart strain. Clinica l correlation and continued follow-up is recommended. 2. Small bilateral pleural effusions with associated bibasilar atelectasis and consolidation. Mediast inal and hilar lymphadenopathy. Clinical correlation and continued follow-up is recommended. 3. Possible right adrenal lesion measuring up to 42 mm incompletely evaluated. Recommend further eval uation with CT of the abdomen with contrast. 4. Possible splenic artery aneurysm measuring up to 8 mm. This can be further evaluated with CT angio gram of the abdomen. HS:Y
[2025-01-15] MEDS: ONDANSETRON HCL 4 MG/2 ML VIAL IV ONE (16:51)
[2025-01-15] MEDS: MORPHINE SULFATE INJ 2 MG/ml SYRG IV ONE (16:53)
[2025-01-15] MEDS: ENOXAPARIN SOD 100 MG/1 ML SYRINGE SC ONE (17:02)
[2025-01-15] MEDS ORDERED: MORPHINE SULFATE INJ 2 MG/ml SYRG IV PRN (19:00)
[2025-01-15] MEDS ORDERED: NITROGLYCERIN 0.4 MG SL TAB SL PRN (19:00)
[2025-01-15] MEDS ORDERED: ONDANSETRON HCL 4 MG/2 ML VIAL IV PRN (19:00)
[2025-01-15] MEDS ORDERED: ALBUTEROL SULF 2.5 MG/0.5ML(0.5%) NEB SOLN NEB PRN (19:00)
--- NOTE | 2025-01-15 19:23 | ECG ---
[facility] Test Date: 2025-01-15 Test Time: 12:38:21 Pat Name: TIM LORD Department: er Room: [address] [place] [address] Gender: F Lay Out Worker: naina : 1945 Requested By: DAISY RUIZ Order Number: [id number] Reading MD: Mark Giles Measurements Intervals [place] Rate: 94 P: 36 CT: 139 QRS: 12 QRSD: 75 T: 2 QT: 359 QTc: 449 Interpretive Statements Sinus rhythm Borderline low voltage, extremity leads Electronically Signed On 01-15-2025 19:37:58 PDT by Mark Giles Please click the below link to view image of tracing.
[2025-01-15 19:48] LABS: INR 1.06 (0.9-1.15); Partial Thromboplastin Time 42.5 SEC (24.5-34.5); Prothrombin Time 11.2 sec (9.3-11.8)
[2025-01-15 20:35] VITALS: PULSE 73; RESP 20; O2SAT 94
[2025-01-15 20:59] VITALS: O2SAT 94
[2025-01-15 21:00] VITALS: BP 118/66; PULSE 73; RESP 20; TEMP 98.4; O2SAT 94
--- NOTE | 2025-01-15 21:17 | DVHHP2 ---
History of Present Illness Reason for Visit: Shortness for breath History of Present Illness 79-year-old female presents for evaluation of shortness for breath. Patient reports sharp pain that radiates to her back with the cheek inspiration. Denies cough or fever. 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 Past Medical History Dyslipidemia, diabetes mellitus Past Surgical History IVC filter Family History Noncontributory Smoke: No ALCOHOL: none Drugs: None Lives: with Family Review of Systems Review of Systems Review of systems are currently negative otherwise addressed in HPI. Allergies: Coded Allergies: Codeine (Verified Allergy, Unknown, 01/27/17) Ibuprofen (Verified Allergy, Unknown, 08/26/23) Medications Current Medications Medications Dose Ordered Sig/Todd Route Start Time Stop Time Status Last Admin Dose Admin Enoxaparin Sodium 90 mg Q12HR SC 01/16/25 10:00 Albuterol 2.5 mg Q6HPRN PRN NEB 01/15/25 19:00 Aspirin 81 mg DAILY PO 01/16/25 10:00 Atorvastatin Calcium 10 mg HS PO 01/15/25 22:00 Pantoprazole Sodium 40 mg DAILY@0600 PO 01/16/25 06:00 Acetaminophen/ Hydrocodone Bitart 1 tab Q4HP PRN PO 01/15/25 19:00 Ondansetron HCl 4 mg Q4HP PRN IV 01/15/25 19:00 Acetaminophen 650 mg Q6HP PRN PO 01/15/25 19:00 Nitroglycerin 0.4 mg Q5MINP PRN SL 01/15/25 19:00 Morphine Sulfate 2 mg Q30M PRN IV 01/15/25 19:00 Exam Vital Signs Vital Signs Date Time Temp Pulse Resp B/P (MAP) Pulse Ox O2 Delivery O2 Flow Rate FiO2 01/15/25 21:00 94 Room Air* 0 21 01/15/25 21:00 98.4 73 20 118/66 98.4 Exam Gen: 79 old female in no apparent distress. Skin: Warm, dry, normal color and texture, no rash. HEENT: Normocephalic atraumatic, mucous membranes moist and pink. Neck: Cervical and supraclavicular nodes normal without enlargement, trachea is midline, thyroid gland is normal without masses. Pulmonary: Clear to auscultation and percussion bilaterally. Cardiac: Regular rate and rhythm. No murmur Abdomen: Soft, nontender, nondistended, bowel sounds present all 4 quadrants, no guarding, no rigidity, no organomegaly. Extremities: No cyanosis, clubbing, no edema Neuro: Cranial nerves II through XII grossly intact, normal affect and speech, no focal motor deficits. Labs/Xrays ORDERING PHYSICIAN: DAISY RUIZ MD PROCEDURE(s): CTACH - CT ANGIO CHEST CONTRAST REASON: r/o pe ORDER NUMBER(s): [id number], ACCESSION NUMBER(s): [id number] CTA Chest with intravenous contrast INDICATION: r/o pe COMPARISON: None TECHNIQUE: Multidetector spiral CTA of the chest was performed of the chest with intravenous contrast. PULMONARY ANGIOGRAPHY PROTOCOL was utilized using a bolus- tracking technique centered on the main pulmonary artery. Axial, coronal and sagittal multiplanar and MIP reformats were performed. CONTRAST: Type of contrast: Omni 350 Contrast injected: 100 ml Radiation dose : Chest: CTDI volume is 8.88 mGy. Dose-length product is 498.29 mGy*cm The dose indicators for CT are the volume computed Tomography (CT) dose Index (CTDIvol) and the dose Length product (DLP), and are measured in units of mGy and mGy-cm, respectively. These indicators are not patient dose, but values generated from the CT scanner acquisition factors. The report includes radiation exposure data for exposures received during this examination. Findings: Limited by motion. Pulmonary artery: Curvilinear filling defects in right lower lobe segmental branches. Small clot burden. No evidence of right heart strain. Lower neck: Normal thyroid. Lungs: Bibasilar consolidation. Patchy ground-glass opacities in both lungs. Subpleural nodule left upper lung measuring up to 9 mm. Heart/Vascular Structures: Normal heart size. No pericardial effusion. IVC stent noted. Lymph Nodes: Mediastinal and hilar lymphadenopathy. Pleura: Small bilateral pleural effusions. Musculoskeletal: No acute osseous abnormality. Soft tissues: Normal. Upper abdomen: Cyst in the dome of the liver. Possible right adrenal lesion measuring up to 42 mm. Possible splenic artery aneurysm measuring up to 8 mm. IMPRESSION: 1. Curvilinear filling defects right lower lobe segmental branches could be chronic. Small acute thrombus could have a similar appearance. Small clot burden. No evidence of right heart strain. Clinical correlation and continued follow-up is recommended. 2. Small bilateral pleural effusions with associated bibasilar atelectasis and consolidation. Mediastinal and hilar lymphadenopathy. Clinical correlation and continued follow-up is recommended. 3. Possible right adrenal lesion measuring up to 42 mm incompletely evaluated. Recommend further evaluation with CT of the abdomen with contrast. 4. Possible splenic artery aneurysm measuring up to 8 mm. This can be further evaluated with CT angiogram of the abdomen. HS:Y Labs Test 01/15/25 19:14 01/15/25 14:48 01/15/25 13:24 Range/Units Prothrombin Time 11.2 9.3-11.8 sec Prothrombin Time INR 1.06 0.9-1.15 Activated Partial Thromboplast Time 42.5 H 24.5-34.5 SEC Troponin I High Sensitivity 9 </=34 ng/L White Blood Count 13.4 H 4.4-10.8 10^3/uL Red Blood Count 3.65 L 4.0-5.20 10^6/uL Hemoglobin 10.7 L 12.2-16.2 g/dL Hematocrit 31.8 L 36.0-46.0 % Mean Corpuscular Volume 87.1 80.0-100.0 fL Mean Corpuscular Hemoglobin 29.2 28.0-32.0 pg Mean Corpuscular Hemoglobin Concent 33.5 32.0-36.0 g/dL Red Cell Distribution Width 14.8 H 11.8-14.3 % Platelet Count 159 140-450 10^3/uL Mean Platelet Volume 9.0 6.9-10.8 fL Neutrophils (%) (Auto) 72.7 37.0-80.0 % Lymphocytes (%) (Auto) 17.3 10.0-50.0 % Monocytes (%) (Auto) 8.1 0.0-12.0 % Eosinophils (%) (Auto) 1.6 0.0-7.0 % Basophils (%) (Auto) 0.3 0.0-2.0 % Neutrophils # (Auto) 9.7 H 1.6-8.6 10 ^3/uL Lymphocytes # (Auto) 2.3 0.4-5.4 10 ^3/uL Monocytes # (Auto) 1.1 0-1.3 10 ^3/uL Eosinophils # (Auto) 0.2 0-0.8 10 ^3/uL Basophils # (Auto) 0 0-0.2 10 ^3/uL Nucleated Red Blood Cells 0.0 % Sodium Level 142 136-145 mmol/L Potassium Level 3.4 L 3.5-5.1 mmol/L Chloride Level 106 98-107 mmol/L Carbon Dioxide Level 29 20-31 mmol/L Anion Gap 7 5-15 Blood Urea Nitrogen 10 9-23 mg/dL Creatinine 0.92 0.550-1.02 mg/dL Glomerular Filtration Rate Calc 64 >90 mL/min BUN/Creatinine Ratio 10.9 10.0-20.0 Serum Glucose 112 H 74-106 mg/dL Calcium Level 10.2 8.7-10.4 mg/dL SEPSIS Sepsis Screen Date sepsis recognized/suspect: Jan 15, 2025 Time Sepsis recognized/suspect: 1624 Recent Procedure: No On Antibiotic Therapy: No Respiratory Rate >20: No Heart Rate >90: No Temp<36 C (96.8 F) or >38.3 C: No SBP <90 or MAP <65 mmHG: No New Acute Mental Status Change: No Is the patient on CPAP, BIPAP,: No Physician Orders Enoxaparin Sodium (Lovenox) (01/16/25 10:00) Albuterol Medneb (Ventolin Medneb) (01/15/25 19:00) Aspirin Tablet (01/16/25 10:00) Atorvastatin (Lipitor) (01/15/25 22:00) Basic Metabolic Panel (01/16/25 04:00) Pantoprazole Tablet (Protonix Tablet) (01/16/25 06:00) Admit (01/15/25 18:55) Hydrocodone-Acet 5/325mg Tab ([place] 5/32 (01/15/25 19:00) Ondansetron Hcl (Zofran) (01/15/25 19:00) Cardiac Diet-2gna,Lofat,Lochol (01/16/25 Breakfast) Echo 2d Mode Cardiac Dop (01/15/25 18:55) Condition: Fair (01/15/25 18:55) Acetaminophen Tablet (Tylenol Tablet) (01/15/25 19:00) Bedrest With Bathroom Privileg (01/15/25 18:55) Nitroglycerin Sublingual (Ntrostat Subli (01/15/25 19:00) Morphine Sulfate Injection (01/15/25 19:00) Stat Ekg For Chest Pain (01/15/25 18:55) Notify Of Changes From Base (01/15/25 18:55) Sandwich Counter Attendant For 24 Hours (01/15/25 18:55) Emergency Dysrhythmia Protocol (01/15/25 18:55) Rhythm Strips Once Every Shift (01/15/25 18:55) Oxygen By Nasal Cannula (01/15/25 18:55) Vital Signs Date Time Temp Pulse Resp B/P (MAP) Pulse Ox O2 Delivery O2 Flow Rate FiO2 01/15/25 21:00 94 Room Air* 0 21 01/15/25 21:00 98.4 73 20 118/66 94 0.0 21 98.4 01/15/25 20:59 94 Room Air 01/15/25 20:35 73 20 94 Room Air* 0 21 01/15/25 19:59 98.4 73 20 118/66 (83) 94 98.4 01/15/25 18:10 91 20 142/70 01/15/25 16:53 91 20 142/70 01/15/25 16:24 83 20 100 Room Air 01/15/25 16:14 98.5 83 20 122/73 (89) 100 98.5 01/15/25 15:30 98.6 80 20 120/70 (87) 100 98.6 01/15/25 13:24 94 Laboratory Tests Test 01/15/25 13:24 White Blood Count 13.4 10^3/uL (4.4-10.8) H Medications Medications Dose Ordered Sig/Todd Route Start Time Stop Time Status Last Admin Dose Admin Enoxaparin Sodium 90 mg ONCE ONCE SC 01/15/25 16:30 01/15/25 16:48 DC 01/15/25 17:02 90 MG Morphine Sulfate 2 mg ONCE ONCE IV 01/15/25 16:45 01/15/25 16:46 DC 01/15/25 16:53 2 MG Ondansetron HCl 4 mg ONCE ONCE IV 01/15/25 16:45 01/15/25 16:46 DC 01/15/25 16:51 4 MG Assessment/Plan Assessment/Plan Assessment Pulmonary emboli Diabetes mellitus Anemia Plan Admit the patient to telemetry to the hospitalist Prasanth b.i.yobani. Replete electrolytes Echocardiogram pending Continue treatment per orders. Plan discussed with: Patient My Orders Orders - JUSTYN WESTON Procedure Category Date Status Time Enoxaparin Sodium PHA 01/16/25 In Process (Lovenox) 10:00 Albuterol Medneb PHA 01/15/25 In Process (Ventolin Medneb) 19:00 Aspirin Tablet PHA 01/16/25 In Process 10:00 Atorvastatin (Lipitor) PHA 01/15/25 In Process 22:00 Basic Metabolic Panel LAB 01/16/25 Verified 04:00 Pantoprazole Tablet PHA 01/16/25 In Process (Protonix Tablet) 06:00 Admit ADMIT 01/15/25 Transmitted 18:55 Hydrocodone-Acet PHA 01/15/25 In Process 5/325mg Tab ([place] 19:00 Ondansetron Hcl PHA 01/15/25 In Process (Zofran) 19:00 Cardiac DIET 01/16/25 Transmitted Diet-2gna,Lofat,Lochol Breakfast Echo 2d Mode Cardiac US 01/15/25 Logged DOP 18:55 Condition: Fair VIRAL 01/15/25 In Process 18:55 Acetaminophen Tablet PHA 01/15/25 In Process (Tylenol Tablet) 19:00 Bedrest With Bathroom VIRAL 01/15/25 In Process Privileg 18:55 Nitroglycerin PHA 01/15/25 In Process Sublingual (Ntrostat 19:00 Morphine Sulfate PHA 01/15/25 In Process Injection 19:00 Stat Ekg For Chest VIRAL 01/15/25 In Process Pain 18:55 Notify Md Of Changes VIRAL 01/15/25 In Process From Base 18:55 Sandwich Counter Attendant For VIRAL 01/15/25 In Process 24 Hours 18:55 Emergency Dysrhythmia VIRAL 01/15/25 In Process Protocol 18:55 Rhythm Strips Once VIRAL 01/15/25 In Process Every Shift 18:55 Oxygen By Nasal RT 01/15/25 Transmitted Cannula 18:55 Date of Service: Jan 15, 2025 Billing Provider: JUSTYN WESTON Common Visit Codes: [id number] INP/OBS CARE (HIGH) JUSTYN WESTON Jan 15, 2025 21:17
[2025-01-15] MEDS: ATORVASTATIN 20 MG TAB PO SCH (21:57)
[2025-01-15 22:11] VITALS: BP 139/73; PULSE 73; RESP 20; TEMP 98.2; O2SAT 90
[2025-01-15] MEDS ORDERED: PANT40T PO (23:02)
[2025-01-15] MEDS ORDERED: APIX5TAB PO (23:02)
[2025-01-16] VITALS (12 sets, daily range): BP systolic 114–127; BP diastolic 65–81; PULSE 69–105; RESP 16–19; TEMP 98.2–99.6; O2SAT 94–100
[2025-01-16] MEDS: PANTOPRAZOLE 40 MG TAB PO SCH (05:46)
[2025-01-16] MEDS: HYDROcodone-ACET 5/325MG TAB PO PRN (05:52)
[2025-01-16] MEDS ORDERED: PANTOPRAZOLE 40 MG TAB PO SCH (06:00)
[2025-01-16 06:21] LABS: Sodium 141 mmol/L (136-145)
[2025-01-16 06:22] LABS: Anion Gap 7 (5-15); Calcium 9.3 mg/dL (8.7-10.4); Carbon Dioxide 26 mmol/L (20-31)
[2025-01-16 06:27] LABS: BUN/Creatinine Ratio 9.6 (10.0-20.0); Glucose 98 mg/dL (74-106)
[2025-01-16 06:28] LABS: Blood Urea Nitrogen 8 mg/dL (9-23); Chloride 108 mmol/L (98-107); Potassium 3.4 mmol/L (3.5-5.1)
[2025-01-16] MEDS: ENOXAPARIN SOD 100 MG/1 ML SYRINGE SC SCH (09:03)
[2025-01-16] MEDS: ACETAMINOPHEN 325 MG TAB PO PRN (18:06)
--- NOTE | 2025-01-16 18:29 | DVHPN2 ---
Subjective has some chest pain today Reviewed: H&P, Labs Changes from previous H/P or p: No Changes Objective Vitals Vital Signs Date Time Temp Pulse Resp B/P (MAP) Pulse Ox O2 Delivery O2 Flow Rate FiO2 01/16/25 17:00 99.6 90 18 120/66 (84) 94 99.6 01/16/25 10:30 Nasal Cannula* 3 32 Intake/Output Intake and Output 01/16/25 07:00 Intake Total 400 ml Balance 400 ml Intake Oral 400 ml # Voids 1 General Appearance: Alert, Oriented X3 HEENT: Atraumatic Lungs: Clear to auscultation Cardiovascular: Regular rate, Normal S1, Normal S2 Abdomen: Normal bowel sounds Medications Current Medications Medications Dose Ordered Sig/Todd Route Start Time Stop Time Status Last Admin Dose Admin Enoxaparin Sodium 90 mg Q12HR SC 01/16/25 10:00 01/16/25 09:03 90 MG Albuterol 2.5 mg Q6HPRN PRN NEB 01/15/25 19:00 Aspirin 81 mg DAILY PO 01/16/25 10:00 01/16/25 09:03 81 MG Atorvastatin Calcium 10 mg HS PO 01/15/25 22:00 01/15/25 21:57 10 MG Pantoprazole Sodium 40 mg DAILY@0600 PO 01/16/25 06:00 01/16/25 05:46 40 MG Acetaminophen/ Hydrocodone Bitart 1 tab Q4HP PRN PO 01/15/25 19:00 01/16/25 05:52 1 TAB Ondansetron HCl 4 mg Q4HP PRN IV 01/15/25 19:00 Acetaminophen 650 mg Q6HP PRN PO 01/15/25 19:00 01/16/25 18:06 650 MG Nitroglycerin 0.4 mg Q5MINP PRN SL 01/15/25 19:00 Morphine Sulfate 2 mg Q30M PRN IV 01/15/25 19:00 Laboratory Results Laboratory Tests 01/15/25 13:24 01/16/25 05:47 Chemistry Test 01/16/25 05:47 Calcium Level 9.3 mg/dL (8.7-10.4) Coagulation Test 01/15/25 19:14 Prothrombin Time 11.2 sec (9.3-11.8) Prothrombin Time INR 1.06 (0.9-1.15) Activated Partial Thromboplast Time 42.5 SEC (24.5-34.5) H Microbiology Microbiology Date/Time Source Procedure Growth Status 01/15/25 23:30 Nose MRSA Screen - Final Complete Assessment/Plan Assessment/Plan Pulmonary emboli Diabetes mellitus Anemia Acute hypoxic respiratory failure due to PE Plan Lovenox b.i.d.>switch to eliquis on discharge Replete electrolytes Echocardiogram pending Wean off oxygen Plan discussed with: Patient Date of Service: Jan 16, 2025 Billing Provider: IVANNA RICHARDSON MD Common Visit Codes: [id number] INP/OBS CARE(HIGH) IVANNA RICHARDSON MD Jan 16, 2025 18:29
[2025-01-16] MEDS: DOCUSATE SOD 100 MG CAP PO PRN (21:50)
[2025-01-17] VITALS (10 sets, daily range): BP systolic 110–121; BP diastolic 60–74; PULSE 86–179; RESP 18–19; TEMP 97.8–99.4; O2SAT 90–97
--- NOTE | 2025-01-17 01:12 | DVHSR ---
APPROVED REPORT EXAM: Two-dimensional and M-mode echocardiogram with Doppler and color Doppler. Blood Pressure: 127/80 mmHg INDICATION PE RISK FACTORS Height: 50, Weight: 134 DIMENSIONS LVDd3.8 (3.8-5.7cm)LA (2D)3.6 (1.9-4.0cm)Aortic Root3.1 (2.0-3.7cm) LVDs2.5 (2.5-4.0cm)LA (MM) (1.9-4.0cm)Aortic Cusp Exc1.6 (1.5-2.0cm) EF (%) 65.0 (55-70%)Rt. Atrium (1.9-4.0cm)Asc. Aorta cm Mitral Valve MitralMitral Stenosis E wave0.91m/sMV Mean GR.mmHg A wave1.08m/sMV Peak GR.105mmHg E/A ratio0.82D MVAcm2 DECEL [id number] 1/2 [id number] IVRTmsDop MVA3.24cm2 Aortic Valve Aortic ValveAortic Stenosis V11.30m/Genevieve Mean GR.8mmHg V21.93m/Genevieve Peak GR.15mmHg LVOT Diameter1.8 (1.8-2.4cm)Doppler AVA1.71cm2 AI P 1/2 Klqp431.02ms Pulmonic Valve V21.21m/s Tricuspid Valve TR Velocity3.09m/s [id number] Conclusion MILD LVH AND MILD LV DIASTOLIC DYSFUNCTION LV EF IS 65% CALCIFIED AORTIC LEAFLETS AORTIC VALVE AREA IS 1.71 CM SQUARE MILD AORTIC STENOSIS MILD AORTIC REGURGITATION POSTERIOR MITRAL LEAFLET HEAVILY CALCIFIED MODERATE DEGREE PULMONARY HYPERTENSION NO EFFUSION
--- NOTE | 2025-01-17 17:11 | DVHDS2 ---
Discharge Summary Date of Admission Jan 15, 2025 at 18:55 Date of Discharge: Jan 17, 2025 Labs/Diagnostic Data: Laboratory Results Test 01/16/25 05:47 01/15/25 19:14 01/15/25 14:48 01/15/25 13:24 Sodium Level 141 mmol/L (136-145) Potassium Level 3.4 mmol/L (3.5-5.1) Chloride Level 108 mmol/L (98-107) Carbon Dioxide Level 26 mmol/L (20-31) Anion Gap 7 (5-15) Blood Urea Nitrogen 8 mg/dL (9-23) Creatinine 0.83 mg/dL (0.550-1.02) Glomerular Filtration Rate Calc 73 mL/min (>90) BUN/Creatinine Ratio 9.6 (10.0-20.0) Serum Glucose 98 mg/dL (74-106) Calcium Level 9.3 mg/dL (8.7-10.4) Prothrombin Time 11.2 sec (9.3-11.8) Prothrombin Time INR 1.06 (0.9-1.15) Activated Partial Thromboplast Time 42.5 SEC (24.5-34.5) Troponin I High Sensitivity 9 ng/L (</=34) White Blood Count 13.4 10^3/uL (4.4-10.8) Red Blood Count 3.65 10^6/uL (4.0-5.20) Hemoglobin 10.7 g/dL (12.2-16.2) Hematocrit 31.8 % (36.0-46.0) Mean Corpuscular Volume 87.1 fL (80.0-100.0) Mean Corpuscular Hemoglobin 29.2 pg (28.0-32.0) Mean Corpuscular Hemoglobin Concent 33.5 g/dL (32.0-36.0) Red Cell Distribution Width 14.8 % (11.8-14.3) Platelet Count 159 10^3/uL (140-450) Mean Platelet Volume 9.0 fL (6.9-10.8) Neutrophils (%) (Auto) 72.7 % (37.0-80.0) Lymphocytes (%) (Auto) 17.3 % (10.0-50.0) Monocytes (%) (Auto) 8.1 % (0.0-12.0) Eosinophils (%) (Auto) 1.6 % (0.0-7.0) Basophils (%) (Auto) 0.3 % (0.0-2.0) Neutrophils # (Auto) 9.7 10 ^3/uL (1.6-8.6) Lymphocytes # (Auto) 2.3 10 ^3/uL (0.4-5.4) Monocytes # (Auto) 1.1 10 ^3/uL (0-1.3) Eosinophils # (Auto) 0.2 10 ^3/uL (0-0.8) Basophils # (Auto) 0 10 ^3/uL (0-0.2) Nucleated Red Blood Cells 0.0 % Other Laboratory Tests 01/16/25 05:47 01/15/25 13:24 Brief Hx & Hospital Course: 79-year-old female presents for evaluation of shortness for breath. Patient reports sharp pain that radiates to her back with the cheek inspiration. Denies cough or fever. 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 PE on CT angio Hypoxic respiratory and weaned off oxygen echo with no heart strain Condition at Discharge: Good Final Diagnosis/Problems List Pulmonary embolism Acute hypoxic respiratory failue due to PE Discharge Disposition: Home Discharge Instruct/Medications Diet: Regular Activity: No Restrictions, As Tolerated Follow Up/Referral: PCp in 7 days Medications: same home medications Scheduled Apixaban Base (Eliquis), 1 TAB PO BID, (Reported) Atorvastatin Calcium (Lipitor), 1 TAB PO QPM, (Reported) Pantoprazole Sodium Sesquihydr (Pantoprazole Sodium), 20 MG PO DAILY, (Reported) Discharge Statement: "Patient was advised to return to the ER or call 911 if any headaches, dizziness, shortness of breath, chest pain, abdominal pain, bleeding, fevers, or worsening of medical condition. Patient was counseled about treatment plan, medications, possible side effects, patientverbalized understanding. All questions were answered to the best of my ability. This discharge took greater then 30 minutes in planning, reviewing documentation, counseling the patient, and discussing with other team members." ASSESSMENT ASSESSMENT Assessment Pulmonary embolism Date of Service: Jan 17, 2025 Billing Provider: IVANNA RICHARDSON MD Common Visit Codes: [id number] DISCH DAY >30min IVANNA RICHARDSON MD Jan 17, 2025 17:11
== END 2025-01-17 19:05 | disposition home or self-care (01) | DRG 175 ==
LOC: ER 12:25 → OVERFLOW 18:55 → TELE-WESTW 22:00
PROVIDERS: ADMIT Hospitalist; ATTEND Hospitalist
DX: I26.99 Other pulmonary embolism without acute cor pulmonale (principal); J96.01 Acute respiratory failure with hypoxia; E11.9 Type 2 diabetes mellitus without complications; E78.5 Hyperlipidemia, unspecified; D64.9 Anemia, unspecified; Z88.6 Allergy status to analgesic agent; Z88.5 Allergy status to narcotic agent; Z90.49 Acquired absence of other specified parts of digestive tract; Z79.82 Long term (current) use of aspirin; Z86.718 Personal history of other venous thrombosis and embolism; Z79.01 Long term (current) use of anticoagulants
CPT/HCPCS: 36415; 71275; 80048; 84484; 85025; 85610; 85730; 87081; 93005; 93306; 99291; G0378; J2405

== ENCOUNTER 2025-02-02 17:18 | Emergency (ER) | payer OTHER, MEDICAID ==
[~2025-02-02] VITALS: Ht 149.9 cm; Wt 57.0 kg
[~2025-02-02 17:18] MED LIST changes: -ALBUAER3 IN; +APIX5TAB PO; -ASCO500T11 PO; -ASPI81CH43 PO; -CHOL1CAP47 PO; -DEX4T PO; -OME20T PO; -ONDA-144 PO; +PANT40T PO; -PERCOT PO; -ZINC220T6 PO
[2025-02-02 18:20] LABS: Hematocrit 37.6 % (36.0-46.0); Hemoglobin 12.6 g/dL (12.2-16.2); Mean Corpuscular Hemoglobin 29.4 pg (28.0-32.0); Mean Corpuscular Volume 87.7 fL (80.0-100.0); Nucleated Red Blood Cells % 0.0 %
[2025-02-02 18:47] LABS: Alanine Aminotransferase 18 U/L (7-40); Albumin 4.6 g/dL (3.2-4.8); Anion Gap 8 (5-15); BUN/Creatinine Ratio 10.2 (10.0-20.0); Blood Urea Nitrogen 10 mg/dL (9-23); Calcium 9.8 mg/dL (8.7-10.4); Carbon Dioxide 25 mmol/L (20-31); Potassium 3.8 mmol/L (3.5-5.1); Sodium 141 mmol/L (136-145); Total Protein 7.0 g/dL (5.7-8.2)
[2025-02-02 18:48] LABS: Bilirubin, Total 0.4 mg/dL (0.2-1.0)
[2025-02-02 19:00] LABS: Alkaline Phosphatase 116 U/L (46-116); Chloride 108 mmol/L (98-107); Glucose 107 mg/dL (74-106); Lipase 66 U/L (12-53)
[2025-02-02] MEDS: IOHEXOL 350 MG/ML 100ML IJ ONE (20:07)
[2025-02-02 20:57] LABS: Urine Protein, UAD Negative (Negative)
--- NOTE | 2025-02-02 22:26 | DVH ---
CTA ABDOMEN AND PELVIS WITH CONTRAST INDICATION: Rule out possible IVC bleed, intra-abdominal/aortic COMPARISON: CT CT ANGIO CHEST CONTRAST on DOS: 01/15/25, CT CT AB PEL WO CON-NO ORAL OR IV on DOS: 08/06 08/28 TECHNIQUES: Thin axial CT images of the abdomen and pelvis are obtained in the early arterial phase a fter intravenous contrast administration. Maximum intensity projection (MIP) images were provided. 3 -D images were constructed on independent workstation. Radiation optimization: All CT scans at this facility use at least one of these dose optimization dane hniques: Automated exposure control mA and/or kV adjustment per patient size (includes targeted exams where dose is matched to clinical indication) or iterative reconstruction. CONTRAST ADMINISTERED: 100 mL omnipaque 350 intravenously RADIATION DOSE: CTDI: 14.8 mGy DLP: 433 mGy-cm FINDINGS: There is a 4 mm nodule in the periphery of the right lower lobe in the costophrenic sulcus. There is no pleural effusion. There is no pericardial effusion. There is material in the mid and distal esopha sabrina and aspiration precautions are recommended. There is no evidence of pulmonary embolism at the samara g bases. The spleen is not enlarged. The liver is normal in size and contour. There is a 1.6 cm cyst in the po sterior right lobe of the liver. The portal vein is patent. The gallbladder is absent. The left adren al gland is unremarkable. There is a 3.4 x 2.5 cm (62 Hounsfield unit) right adrenal mass versus ivonne minoo. There is a metallic stent extending from the intrahepatic IVC down nearly to the bifurcation. A t the time of scanning, intravenous contrast has not yet reached the returning veins from the lower e xtremities and the majority of the IVC and IVC stent can not be evaluated. There is however trace con trast entering the upper IVC from the renal veins confirming patency at that level. There is mild str anding about the stent at the level of the renal veins and extending inferiorly along the fascia of t he peritoneum and the right perirenal fascia, nonspecific. The kidneys enhance symmetrically. No harry d renal mass is identified. There is no hydronephrosis of either kidney. The urinary bladder is gross ly unremarkable. The uterus and ovaries are within normal limits. There is reflux of contrast down t he left gonadal vein from the left renal vein into the pelvis. No free fluid is identified in the pel vis. There is enteric contrast within the distal transverse colon down to the rectum. There is severe sigmoid diverticulosis without evidence of acute diverticulitis. The colonic stool burden is overall small. The patient is status post ileocecectomy. There is no distention of the small bowel to sugges t obstruction. There is a complex periumbilical hernia containing abdominal fat. No acute osseous abn ormality is identified. There are degenerative changes in the lumbar spine. IMPRESSION: At the time of scanning, intravenous contrast is predominantly within the aorta and contrast has not yet reached the returning veins from the lower extremities and the majority of the IVC and IVC stent can not be evaluated. There is however trace contrast entering the upper IVC from the renal veins con firming patency at that level. There is mild stranding about the stent at the level of the renal vein s and extending inferiorly along the fascia of the peritoneum and the right perirenal fascia. This s tranding is nonspecific and could represent inflammation or blood products. There is a 3.4 cm right adrenal mass versus hematoma. Comparison with prior studies is recommended , if available. There is material in the mid and distal esophagus. Aspiration precautions are recommended. There is a 4 mm nodule at the periphery of the right lower lobe in the costophrenic sulcus. The Flei schner society guidelines listed below for follow-up recommendation reference. Refluxing contrast down the left gonadal vein from the left renal vein. Correlate clinically for sign s and symptoms of pelvic congestion syndrome. Severe sigmoid diverticulosis without evidence of acute diverticulitis. Fleischner Society Guidelines for Incidental Pulmonary Nodules: SOLID NODULES Single low-risk: < 6 mm No follow up. 6-[address] at 6-12 months, then consider CT at 18-24 months. > [address] at 3 months, PET/CT or bx. Single high risk: < [address] at 12 months. 6-[address] at 6-12 months, then consider CT at 18-24 months. > [address] at 3 months, PET/CT or bx. Multiple low risk: < 6 mm No follow up. 6-[address] at 3-6 months, then consider CT at 18-24 months. > [address] at 3-6 months, then consider CT at 18-24 months. Multiple high risk: < [address] at 12 months. 6-[address] at 3-6 months, then CT at 18-24 months. > [address] at 3-6 months, then CT at 18-24 months. SUBSOLID NODULES Ground glass: < 6 mm No follow up. > [address] at 6-12 months, then CT every 2 years for 5 years. Part solid: < 6 mm No follow up. > [address] at 3-6 months. If stable with solid component <6mm, annual CT for 5 years. Multiple: < [address] at 3-6 months. If stable, consider CT at 2 and 4 years. > [address] at 3-6 months. Subsequent based on most suspicious nodule. Notes: Recommendations do not apply to cancer screening, patient with immunosuppression or known primary can cer. Reference: Radiology 2017; Fernandohon et al; 000:[id number]
[2025-02-03 00:55] VITALS: BP 153/84; PULSE 85; RESP 19; TEMP 98.1; O2SAT 96
--- NOTE | 2025-02-03 02:50 | ED.PDOC ---
History of Present Illness HPI Comments This patient is a 79-year-old female who arrives the ED today for evaluation of intra-abdominal pain with additional concerns. Patient had a CT evaluation with IV and oral contrast this morning for re-evaluation of a IVC filter removal that was performed two weeks ago. Patient's provider contacted her and stated she needed to come to the ED for evaluation. Patient did not bring reports or a disc with her and therefore, she was unaware of exactly where the bleed was occurring. Patient states that the IVC filter was removed and a stent was placed as well as stating that she had some intra-abdominal bleeding that was noted by the surgeon at the time of her surgical procedure. Patient denies any fever nausea or vomiting. Surgery was performed by Dr. Bar at [facility] on January 19, 2025. Vital signs were stable on arrival. Chief Complaint: Abnormal LAB's Time Seen by MD: 17:39 Primary Care Provider: SHAHRAM Reviewed Notes: Nurses Notes Allergies: Coded Allergies: Codeine (Verified Allergy, Unknown, 01/27/17) Ibuprofen (Verified Allergy, Unknown, 08/26/23) Home Meds Reported Medications Apixaban Base (ELIQUIS) 5 Mg Tab, 1 TAB PO BID 01/15/25 Pantoprazole Sodium Sesquihydr (Pantoprazole Sodium) 40 Mg Tab, 20 MG PO DAILY 01/15/25 Atorvastatin Calcium (Lipitor) 10 Mg Tab, 1 TAB PO QPM, #90 TAB 1 Refill 06/11/20 Information Source: Patient, Spouse Mode of Arrival: Ambulatory Severity: Moderate Timing: Hours Duration: Since onset Prehospital treatment: None Past Medical History PAST MEDICAL HISTORY: DM, High Lipids Past Medical History (Other): History of cardiac related concerns. Surgical History: Denies all surgeries Surgical History (Other): Recent intra-abdominal procedure for an IVC filter removal in his stent placement [employer] History: No Pertinent [employer] History Family History Family History: Reviewed,noncontributory to illness, Unknown Social History Smoker: Non-Smoker Alcohol: Denies ETOH Use Drugs: Denies Drug Use Lives In: Home Constitutional: denies: chills, diaphoresis, fatigue, fever, malaise, sweats, weakness, others EENTM: denies: blurred vision, double vision, ear bleeding, ear discharge, ear drainage, ear pain, ear ringing, eye pain, eye redness, hearing loss, mouth pain, mouth swelling, nasal discharge, nose bleeding, nose congestion, nose pain, photophobia, tearing, throat pain, throat swelling, voice changes, others Respiratory: denies: cough, hemoptysis, orthopnea, SOB at rest, shortness of breath, SOB with excertion, stridor, wheezing, others Cardiovascular: denies: chest pain, dizzy spells, diaphoresis, Dyspnea on exertion, edema, irregular heart beat, left arm pain, lightheadedness, palpitations, PND, syncope, others Gastrointestinal: reports: abdominal pain; denies: abdomen distended, blood streaked bowels, constipated, diarrhea, dysphagia, difficulty swallowing, hematemesis, melena, nausea, poor appetite, poor fluid intake, rectal bleeding, rectal pain, vomiting, others Genitourinary: denies: abnormal vagina bleeding, burning, dyspareunia, dysuria, flank pain, frequency, hematuria, incontinence, pain, , vagina discharge, urgency, others Neurological: denies: dizziness, fainting, headache, left sided numbness, left sided weakness, numbness, paresthesia, pre-existing deficit, right sided numbness, right sided weakness, seizure, speech problems, tingling, tremors, weakness, others Musculoskeletal: denies: back pain, gout, joint pain, joint swelling, muscle pain, muscle stiffness, neck pain, others Integumetry: denies: bruises, change in color, change in hair/nails, dryness, laceration, lesions, lumps, rash, wounds, others Allergic/Immunocompromised: denies: Difficulty Healing, Frequent Infections, Hives, Itching, others Hematologic/Lymphatic: denies: anemia, blood clots, easy bleeding, easy bruising, swollen glands, others Endocrine: denies: excessive hunger, excessive sweating, excessive thirst, excessive urination, flushing, intolerance to cold, intolerance to heat, unexplained weight gain, unexplained weight loss, others Psychiatric: denies: anxiety, bipolar disorder, depression, hopeless, panic disorder, schizophrenia, sleepless, suicidal, others Physical Exam General Appearance: Mild Distress (Moderate distress due to anxiety related to her chief complaint.), Normal HEENT: Normal ENT Inspection, Pharynx Normal, TMs Normal Neck: Full Range of Motion, Non-Tender, Normal, Normal Inspection Respiratory: Chest Non-Tender, Lungs Clear, No Accessory Muscle Use, No Respiratory Distress, Normal Breath Sounds Cardiovascular: No Edema, No JVD, No Murmur, No Gallop, Normal Peripheral Pulses, Regular Rate/Rhythm Breast Exam: Deferred Gastrointestinal: Other (Diffuse bilateral epigastric pain on palpation extending towards the periumbilical region. Abdomen was reasonably soft. No pulsatile masses.) Genitalia: Deferred Pelvic: Deferred Rectal: Deferred Extremities: No calf tenderness, Normal capillary refill, Normal inspection, Normal range of motion, Non-tender, No pedal edema Neurologic: Alert, No Motor Deficits, Normal Affect, Normal Mood, No Sensory Deficits Cerebellar Function: NOT DONE Reflexes: NOT DONE Skin: Dry, Normal Color, Warm Lymphatic: No Adenopathy Was a procedure done? Was a procedure done?: No Differential Dx Considerations may include: Postoperative complication, intra-abdominal bleed, sepsis, electrolyte abnormality X-Ray, Labs, Meds, VS Vital Signs Date Time Temp Pulse Resp B/P (MAP) Pulse Ox O2 Delivery O2 Flow Rate FiO2 02/03/25 00:55 98.1 85 19 153/84 (107) 96 98.1 02/02/25 20:22 79 19 95 Room Air 02/02/25 20:22 98.2 79 19 140/76 (97) 95 98.2 02/02/25 17:19 97.5 86 18 144/73 95 97.5 Lab Test 02/02/25 21:04 02/02/25 20:14 02/02/25 19:51 02/02/25 17:58 Range/Units Troponin I High Sensitivity < 3 L < 3 L 4 </=34 ng/L Urine Color Light-yellow Yellow Urine Clarity Clear Clear Urine pH 5.5 5.0-9.0 Urine Specific Warren 1.016 1.001-1.035 Urine Protein Negative Negative Urine Ketones Negative Negative Urine Blood Negative Negative /uL Urine Nitrite Negative Negative Urine Bilirubin Negative Negative Urine Urobilinogen Normal Negative mg/dL Urine Leukocyte Esterase Trace Negative /uL Urine RBC <1 0 - 4 /hpf Urine Microscopic WBC 3 0-5 /HPF Urine Squamous Epithelial Cells None seen <5 /hpf Urine Bacteria None seen None Seen /hpf Urine Glucose Normal Normal mg/dL White Blood Count 9.8 4.4-10.8 10^3/uL Red Blood Count 4.29 4.0-5.20 10^6/uL Hemoglobin 12.6 12.2-16.2 g/dL Hematocrit 37.6 36.0-46.0 % Mean Corpuscular Volume 87.7 80.0-100.0 fL Mean Corpuscular Hemoglobin 29.4 28.0-32.0 pg Mean Corpuscular Hemoglobin Concent 33.5 32.0-36.0 g/dL Red Cell Distribution Width 14.6 H 11.8-14.3 % Platelet Count 439 140-450 10^3/uL Mean Platelet Volume 8.3 6.9-10.8 fL Neutrophils (%) (Auto) 50.2 37.0-80.0 % Lymphocytes (%) (Auto) 38.5 10.0-50.0 % Monocytes (%) (Auto) 6.7 0.0-12.0 % Eosinophils (%) (Auto) 4.1 0.0-7.0 % Basophils (%) (Auto) 0.5 0.0-2.0 % Neutrophils # (Auto) 4.9 1.6-8.6 10 ^3/uL Lymphocytes # (Auto) 3.8 0.4-5.4 10 ^3/uL Monocytes # (Auto) 0.7 0-1.3 10 ^3/uL Eosinophils # (Auto) 0.4 0-0.8 10 ^3/uL Basophils # (Auto) 0 0-0.2 10 ^3/uL Nucleated Red Blood Cells 0.0 % Sodium Level 141 136-145 mmol/L Potassium Level 3.8 3.5-5.1 mmol/L Chloride Level 108 H 98-107 mmol/L Carbon Dioxide Level 25 20-31 mmol/L Anion Gap 8 5-15 Blood Urea Nitrogen 10 9-23 mg/dL Creatinine 0.98 0.550-1.02 mg/dL Glomerular Filtration Rate Calc 59 >90 mL/min BUN/Creatinine Ratio 10.2 10.0-20.0 Serum Glucose 107 H 74-106 mg/dL Lactic Acid Level 1.2 0.4-2.0 mmol/L Calcium Level 9.8 8.7-10.4 mg/dL Total Bilirubin 0.4 0.2-1.0 mg/dL Aspartate Amino Transferase (AST) 24 13-40 U/L Alanine Aminotransferase (ALT) 18 7-40 U/L Alkaline Phosphatase 116 46-116 U/L Total Protein 7.0 5.7-8.2 g/dL Albumin 4.6 3.2-4.8 g/dL Lipase 66 H 12-53 U/L X-Ray, Labs, Meds, VS Comment All studies performed in the ED were evaluated by me personally. Serum studies were remarkable for a mildly elevated lipase while urinalysis was unremarkable for any UTI formation. CT evaluation of the abdomen revealed that the intravenous contrast was predominantly within the aorta and contrast had not yet reached the returning veins from the lower extremities and the majority of the IVC an IVC stent can not be evaluated. There is however, trace contrast entering the upper IVC from the renal veins confirming patency at that level. There is mild stranding about the stent at the level of the renal veins and extending inferiorly along the fascia of the peritoneum and the right perirenal fascia. Stranding is nonspecific and could represent inflammatory or blood products. Additional findings of a 3.5 cm right adrenal mass versus hematoma was noted. There was noted material in the mid and distal esophagus with aspiration concerns. Refluxing contrast down the left gonadal vein from the left renal vein was noted and advisement of a possible clinical correlation for signs and symptoms of pelvic congestive syndrome. We attempted to transfer the patient to [place] initially and was informed that they were at capacity. We a additionally attempted multiple facilities to transfer the patient, but all their surgical teams were refusing the admission as the procedure and performed at [facility]. During this process, patient and her stated they wanted to leave [facility]. Advised that we were attempting to transfer them to a facility to aid them, but they stated they would manage with the condition on their own. Advised them that leaving the facility today could have significant medical consequences including , but the patient stated she understood and signed the form any way. Time of 1ST Reevaluation: 02:47 Reevaluation 1ST: Improved Consultation: PCP, Surgery Patient Education/Counseling: Diagnosis, Treatment Family Education/Counseling: Diagnosis, Treatment SEPSIS Sepsis Screen Date sepsis recognized/suspect: Feb 02, 2025 Time Sepsis recognized/suspect: 1721 Recent Procedure: No On Antibiotic Therapy: No Respiratory Rate >20: No Heart Rate >90: No Temp<36 C (96.8 F) or >38.3 C: No SBP <90 or MAP <65 mmHG: No New Acute Mental Status Change: No Is the patient on CPAP, BIPAP,: No Physician Orders Electrocardigram (02/02/25 17:50) Heplock Iv (02/02/25 ) Angio Aortic Abdominal (02/02/25 18:10) Imaging Transfer Request (02/02/25 23:30) Vital Signs Date Time Temp Pulse Resp B/P (MAP) Pulse Ox O2 Delivery O2 Flow Rate FiO2 02/03/25 00:55 98.1 85 19 153/84 (107) 96 98.1 02/02/25 20:22 79 19 95 Room Air 02/02/25 20:22 98.2 79 19 140/76 (97) 95 98.2 02/02/25 17:19 97.5 86 18 144/73 95 97.5 Laboratory Tests Test 02/02/25 17:58 Lactic Acid Level 1.2 mmol/L (0.4-2.0) White Blood Count 9.8 10^3/uL (4.4-10.8) Departure 1 Departure Time of Disposition: 02:49 Impression: Primary Impression: Postoperative complication Additional Impression: Abdominal pain Disposition: 07 LEFT AGAINST MEDICAL ADVICE Condition: Fair Discharged With: Self, Spouse Critical Care Note Critical Care Time?: No Stability Stability form required: No Heart Score Heart Score: Heart Score Response (Comments) Value History N/A 0 EKG N/A 0 Age N/A 0 Risk Factors N/A 0 Troponin N/A 0 Total 0 KENNEDY HERZOG PAC Feb 03, 2025 02:49
== END 2025-02-03 02:36 | disposition left against medical advice (07) ==
LOC: ER 17:18
DX: T81.9XXA Unspecified complication of procedure, initial encounter (principal); R10.9 Unspecified abdominal pain; E11.9 Type 2 diabetes mellitus without complications; E78.5 Hyperlipidemia, unspecified; Z79.899 Other long term (current) drug therapy; Z88.5 Allergy status to narcotic agent; Z88.6 Allergy status to analgesic agent
CPT/HCPCS: 36415; 74175; 80053; 81001; 83605; 83690; 84484; 85025; 99285; Q9967

== ENCOUNTER 2025-04-25 08:52 | Outpatient (CLI) | payer OTHER, MEDICAID ==
[~2025-04-25] VITALS: Ht 149.9 cm; Wt 56.7 kg
[2025-04-25] MEDS ORDERED: ADENOSINE 90 MG/30 ML INJ IV ONE (09:35)
[2025-04-25] MEDS ORDERED: ADENOSINE 48 MG in GIVE UN-DILUTED 0 ML IV ONE (11:00)
== END 2025-04-25 17:00 | disposition home or self-care (01) ==
LOC: Rad HDHVI 08:52
PROVIDERS: ATTEND Internal Medicine Cardiovascular Disease
DX: I11.0 Hypertensive heart disease with heart failure (principal); I50.33 Acute on chronic diastolic (congestive) heart failure; I49.1 Atrial premature depolarization; I42.9 Cardiomyopathy, unspecified; I48.0 Paroxysmal atrial fibrillation; I26.99 Other pulmonary embolism without acute cor pulmonale; I87.2 Venous insufficiency (chronic) (peripheral); E11.9 Type 2 diabetes mellitus without complications; E78.5 Hyperlipidemia, unspecified; R07.89 Other chest pain; Z95.828 Presence of other vascular implants and grafts
CPT/HCPCS: 78452; 93017; A9500; J0153